=== PATIENT | female | born 1950 | race Caucasian/White ===

== ENCOUNTER 2018-02-23 08:04 | Outpatient (CLI) | payer MEDICARE ==
[~2018-02-23] VITALS: Ht 154.9 cm; Wt 52.3 kg
--- NOTE | ~2018-02-23 | HEMODYNAMI ---
PATIENT:COREY CAMACHO MEDICAL RECORD: [id number] : 46 LOCATION:DRTANG ADMISSION DATE: 02/23/18 Generatedon:02/23/20189:44 Patient name: COREY CAMACHO Patient #: [id number] SSN: : 1950 Date of study: 02/23/2018 Page: Of Hemodynamic Procedure Report Patient Data Patient Demographics Procedure consent was obtained First Name: COREY Gender: Female Last Name: DOUG : 1950 [facility] Initial: JACKIE Age: 68 year(s) Patient #: [id number] Race: Unknown Additional ID: [id number] Contact details [address]: [address] [place] [address] State: [place] City: [place] Zip code: [address] Admission Admission Data Admission Date: 02/23/2018 Admission Time: 8:04 Procedure Procedure Types Cath Procedure Diagnostic Procedure LHC LHC w/Coronaries w/Grafts FFR/IVUS Intra-Coronary IVUS Initial Sedation Charges Moderate Sedation up to 15 minutes PCI Procedure AMI/SVG/TIRE GROOVER PTCA or Stent SVG-BMS/SAVANA Initial Peripheral Cath Diagnostic Procedure Cath Peripheral Wcslr-Gtnseyx-Psm-Off Procedure Description Procedure Date Procedure Date: 02/23/2018 Procedure Start Time: 9:22 Procedure End Time: 9:42 Procedure Staff Name Function Edy Jackson MD Performing Physician Darrick Paige RT Monitor Reggie Gómez RN Nurse Claudette Amaya RT Scrub Procedure Data Cath Procedure Fluoroscopy Diagnostic fluoroscopy Total fluoroscopy Time: 5.5 time: 5.5 min min Diagnostic fluoroscopy Total fluoroscopy dose: 560 dose: 560 mGy mGy Contrast Material Contrast Material Type Amount (ml) Isovue 300 169 Entry Location Entry Primary Successful Side Size Upsize Upsize Entry Closure Succes sful Closure Location (Fr) 1 (Fr) 2 (Fr) Remarks Device Remarks Femoral Right 5 Fr 6 Fr Exoseal artery Short Estimated blood loss: 10 ml Diagnostic catheters Device Type Used For End Catheter Placement MULTIPACK Pigtail 5 Fr Procedure catheter MULTIPACK JL 4.0 5Fr Procedure catheter MULTIPACK 3DRC 5Fr Procedure catheter DIAGNOSTIC AR 2 MOD 5 Fr Procedure catheter ([id number]) DIAGNOSTIC AL 2 5Fr Procedure catheter ([id number]) Procedure Complications No complications Procedure Medications Medication Administration Route Dosage 0.9% NaCl I.V. 100 ml/hr Oxygen etCO2 Nasal cannula 2 l/min Heparin Flush Bag added to field 2 bags (1000units/500ml NS) Lidocaine 2% added to field 20 Versed I.V. 1 mg Fentanyl I.V. 50 mcg Heparin Bolus I.V. 4000 units Hemodynamics Rest Heart Rate: 58 (bpm) Snapshots Pre Cath Intra NCS Post Cath Vital Signs Time Heart Resp SPO2 etCO2 NIBP (mmHg) Rhythm Pain Sedation Rate (ipm) (%) (mmHg) Status Level (bpm) 9:05:12 56 16 98 0 153/81(119) NSR 0 (11) 10(A) , No pain 9:09:53 56 14 98 32.3 157/82(116) NSR 0 (11) 10(A) , No pain 9:14:34 58 17 98 39.8 117/69(94) NSR 0 (11) 10(A) , No pain 9:19:08 59 17 98 43.6 119/67(88) NSR 0 (11) 10(A) , No pain 9:23:44 58 18 97 37.6 118/65(83) NSR 0 (11) 9(A) , No pain 9:28:23 58 18 98 25.5 114/54(87) NSR 0 (11) 9(A) , No pain 9:32:59 57 18 98 33.8 114/57(89) NSR 0 (11) 9(A) , No pain 9:37:36 58 18 98 24.8 112/56(87) NSR 0 (11) 10(A) , No pain 9:42:13 58 18 98 1.5 105/58(86) NSR 0 (11) 10(A) , No pain Medications Time Medication Route Dose Verified Delivered Reason Notes Effectiveness by by 9:09:57 0.9% NaCl I.V. 100 Reggie Reggie Per physician ml/hr Dalia Gómez RN RN 9:10:15 Oxygen etCO2 2 Reggie Reggie Per physician Nasal l/min Dalia Gómez cannula RN RN 9:10:27 Heparin Flush added 2 Reggie Reggie used for Bag to bags Dalia Gómez procedure (1000units/500ml field RN RN NS) 9:10:47 Lidocaine 2% added 20ml Reggie Reggie for local to vial Dalia Gómez anesthetic field RN RN 9:22:33 Versed I.V. 1 mg Reggie Reggie for sedation Dalia Gómez RN RN 9:22:42 Fentanyl I.V. 50 Reggie Reggie for sedation mcg Dalia Gómez RN RN 9:36:10 Heparin Bolus I.V. 4000 Reggie Reggie for units Dalia Gómez anticoagulation RN health safety instructor Log Time Note 8:49:59 Time tracking: Regular hours (M-F 7:00 - 5:00) 8:50:04 Plan of Care:Hemodynamics will remain stable., Cardiac rhythm will remain stable., Comfort level will be maintained., Respiratory function will remain adequate., Patient/ family verbilizes understanding of procedure., Procedure tolerated without complication., Recovers from procedure without complications.. 8:51:16 Claudette Counts RT(R) sent for patient. Start room use. 9:00:02 Patient received from Pre/Post Procedure Room to CCL 1 Alert and oriented. Tansferred to table in Supine position. 9:00:03 Warm blankets applied, and brie hugger turned on for patient comfort. 9:00:04 Correct patient and procedure confirmed by team. 9:00:06 Signed procedure consent form obtained from patient. 9:00:07 ECG and BP/O2 sat monitors applied to patient. 9:00:51 H&P Date Dictated: 02/09/2018 Within 30 days and on chart., H&P Addendum completed by physician on day of procedure. (MUST COMPLETE FOR ALL OUTPATIENTS). 9:04:16 Vital chart was started 9:04:19 Rhythm: sinus rhythm 9:09:57 0.9% NaCl 100 ml/hr I.V. was administered by Reggie Gómez RN; Per physician; 9:10:15 Oxygen 2 l/min etCO2 Nasal cannula was administered by Reggie Gómez RN; Per physician; 9:10:27 Heparin Flush Bag (1000units/500ml NS) 2 bags added to field was administered by Reggie Lorigan RN; used for procedure; 9:10:47 Lidocaine 2% 20ml vial added to field was administered by Reggie Gómez RN; for local anesthetic; 9::13 Pre-procedure instructions explained to patient. 9:21:13 Pre-op teaching completed and patient verbalized understanding. 9:21:17 Family in patients room. 9:21:19 Patient NPO since Midnight. 9:21:20 Is the patient allergic to Iodine/contrast media? No. 9:21:21 Is patient on blood thinner?Yes 9:21:24 ACC The patient was administered the following blood thiners within the last 24 hours: ACCPlavix 9:21:26 Patient diabetic? No. 9:21:30 Previous problem with sedation/anesthesia? No ? 9:21:32 Snore? Yes 9:21:33 Sleep apnea? No 9:21:34 Deviated septum? No 9:21:35 Opens mouth fully? Yes 9:21:36 Sticks out tongue? Yes 9:21:38 Airway obstruction? No ? 9:21:40 Dentures? No ? 9:21:43 Pre procedure: right dorsailis pedis pulse 2+ Normal; easily identifiable; not easily obliterated 9:21:50 Pre procedure: left dorsailis pedis pulse 2+ Normal; easily identifiable; not easily obliterated 9:21:53 Patient pain scale 0/10 ?. 9:22:00 IV patent on arrival in left forearm with 0.9% NaCl at O. 9:22:02 Lab results completed and on chart. 9:22:07 Bilateral groins area was prepped with chlora-prep and draped in sterile fashion 9:22:08 Alarms reviewed by R. N. 9:22:08 Sharps counted by scrub and verified by R.N. 9:22:09 --------ALL STOP TIME OUT------ 9:22:10 Final Timeout: patient, procedure, and site verified with staff and physician. All members of the team are in agreement. 9:22:13 Bilateral groins site verified by team. 9:22:15 Physical assessment completed. ASA score P 2 - A patient with mild systemic disease as per Edy Jackson MD. 9:22:18 Sedation plan: IV Moderate Sedation Medication:Versed, Fentanyl 9:22:33 Versed 1 mg I.V. was administered by Reggie Gómez RN; for sedation; 9:22:35 Use device set Femoral Dx 9:22:36 Tegaderm 4 x 4 (1626W) opened to sterile field. 9:22:37 PERCUTANEOUS ENTRY 19GA needle opened to sterile field. 9:22:38 ACIST Syringe (77258) opened to sterile field. 9:22:38 Bag Decanter (2002S) opened to sterile field. 9:22:39 Medline Cath Pack ([id number]) opened to sterile field. 9:22:41 ACIST Hand Control (93420) opened to sterile field. 9:22:41 ACIST Manifold (61397) opened to sterile field. 9:22:42 Fentanyl 50 mcg I.V. was administered by Reggie Gómez RN; for sedation; 9::42 DIAGNOSTIC WIRE .035 260cm J wire (125237) opened to sterile field. 9:22:44 DIAGNOSTIC Multipack 5Fr catheter set (ZR0714) opened to sterile field. 9:22:45 SHEATH Prelude 5Fr 0.035 (PMK-2D-09-035) opened to sterile field. 9::52 Procedure started. 9::52 Full Disclosure recording started 9:22:56 Local anesthetic to right femoral artery with Lidocaine 2% by Edy Jackson MD.INITIAL ACCESS ONLY 9:23:59 A 5 Fr sheath was inserted into the Right Femoral artery 9:24:16 A MULTIPACK Pigtail 5 Fr catheter was advanced over the wire and used for Procedure. 9:24:27 Baseline sample Acquired. 9:24:33 LV angiography performed. 9:24:35 LV gram done using BLANKENSHIP 9:24:39 EF : 40 % 9::44 Injector settings: Ml/sec: 10, Volume: 20, 9:24:48 Abdominal Aortagram was performed. 9:24:50 Left leg runoff performed. 9:24:51 Right leg runoff performed. 9:26:29 Catheter exchanged over wire. 9::35 A MULTIPACK JL 4.0 5Fr catheter was advanced over the wire and used for Procedure. 9:27:41 LCA angiography performed. 9:27:42 Catheter exchanged over wire. 9:27:47 A MULTIPACK 3DRC 5Fr catheter was advanced over the wire and used for Procedure. 9:28:16 RCA angiography performed. 9:28:23 Catheter exchanged over wire. 9:29:10 A DIAGNOSTIC AR 2 MOD 5 Fr catheter ([id number]) was advanced over the wire and used for Procedure. 9:30:23 SVG to Ramus angiography performed. 9:30:26 SVG to RCA angiography performed. 9:31:08 SHEATH Prelude 6Fr 0.035 (UUK-5C-15-035) opened to sterile field. 9:31:09 INFLATOR Merit BasixCompak (MH7338) opened to sterile field. 9:32:26 Catheter exchanged over wire. 9:32:29 A DIAGNOSTIC AL 2 5Fr catheter (023435K) was advanced over the wire and used for Procedure. 9:33:43 SVG to LAD angiography performed. 9:34:04 [place] Cheesh-[place] IVUS Catheter (53507T) opened to sterile field. 9:34:12 CHOICE PT Extra Support 182cm wire ([id number]) opened to sterile field. 9:35:40 Catheter removed. 9:35:48 Sheath upsized to a 6 Fr Short. 9:35:56 GUIDE 6FR AL 2.0 catheter (XO3ME26) opened to sterile field. 9:36:06 6 Fr AL 2 guide catheter was inserted over the wire 9:36:10 Heparin Bolus 4000 units I.V. was administered by Reggie Gómez RN; for anticoagulation; 9:36:12 CHOICE PT wire advanced. 9:36:12 Wire advanced across lesion. 9:36:15 IVUS catheter advanced over wire. 9:38:19 IVUS pass to LAD lesion performed. 9:38:24 IVUS catheter removed over wire. 9:39:14 Place stent Inflation Number: 1 A JEFE RX 4.0 x 15 stent ([id number]) was prepped and advanced across the Aorta Left -> Mid LAD. The stent was deployed at 23 TRUE for 0:10 (min:sec). 9:39:24 Stent catheter was removed intact over wire. 9:39:24 Wire removed. 9:39:25 Guide catheter removed. 9:39:32 EXOSEAL 6Fr (EX600) opened to sterile field. 9:39:42 Sheath removed intact; hemostasis achieved with Exoseal to the Right Femoral artery. 9:39:43 Procedure ended.(Physican Out) 9:39:58 Fluoroscopy time 05.50 minutes. 9:40:56 Contrast amount:Isovue 300 169ml. 9:41:00 Flurop Dose total: 560 9:41:00 Fluoroscopy dose: 560 mGy 9:41:04 Sharps counted by scrub and verified by R.N. 9:41:05 Insertion/operative site no bleeding no hematoma. 9:41:08 Post-op/insertion site Right Femoral artery dressed using a 4 x 4 and Tegaderm. 9:41:16 Post right femoral artery:stable, soft, clean and dry 9:41:17 Post Procedure Pulses reassessed and unchanged 9:41:19 Post-procedure physical assessment completed. ASA score P 2 - A patient with mild systemic disease as per Edy Jackson MD. 9:41:22 Post procedure rhythm: unchanged. 9:41:25 Estimated blood loss: 10 ml 9:41:26 Post procedure instruction explained to patient.Patient verbalizes understanding. 9:41:27 Patient needs reinforcement of post procedure teaching. 9:41:47 Procedure type changed to Cath procedure, Diagnostic procedure, LHC, LHC w/Coronaries w/Grafts, FFR/IVUS, Intra-Coronary IVUS Initial, Sedation Charges, Moderate Sedation up to 15 minutes, PCI procedure, AMI/SVG/TIRE GROOVER PTCA or Stent, SVG-BMS/SAVANA Initial, Peripheral Cath Diagnostic Procedure, Cath Peripheral, Swret-Pbmnlyw-Nol-Off 9:42:13 Procedure and supply charges have been captured, reviewed, submitted and are correct. 9:42:16 Procedure Complication : No complications 9:42:18 Vital chart was stopped 9:42:19 See physician's report for complete and final results. 9:42:20 Report given to Pre/Post Procedure Room. 9:42:23 Patient transfered to Pre/Post Procedure Room with Stretcher. 9:42:27 Procedure ended. 9:42:27 Full Disclosure recording stopped 9:42:29 End room use (Document Last) Intervention Summary Intervention Notes Time ActionType Lesion and Equipment Used Action# Pressure Duration Attributes 9:39:14 Place stent Aorta Left JEFE RX 4.0 x 1 23 00:10 -> Mid LAD 15 stent ([id number]) Device Usage Item Name Manufacture Quantity Catalog Number Hospital Part Current Minimal Lot# / Charge Number Stock Stock Serial# Code Tegaderm 4 x 4 3M 1 1626W [id number] 400433 [id number] 5 (1626W) PERCUTANEOUS Cook Medical 1 [id number] 880998 692978 5 ENTRY 19GA needle ACIST Syringe Acist 1 38559 941943 695348 705921 20 (53116) Medical Systems Inc Bag Decanter Microtek 1 2001S 676127 68549 568979 5 (2001S) Medical Inc. Medline Cath Cardinal 1 [id number] 872290 29558 363005 5 Pack Health ([id number]) ACIST Hand Acist 1 32277 045370 017450 047511 5 Control (58746) Medical Systems Inc ACIST Manifold Acist 1 94806 803600 175936 686779 5 (91576) Medical Systems Inc DIAGNOSTIC WIRE St Beau 1 154926 548829 587219 314437 30 .035 260cm J wire (450948) DIAGNOSTIC Cardinal 1 IT4414 239852 54739 517853 30 Multipack 5Fr Health catheter set (HK5784) SHEATH Prelude Merit 1 OBJ-7Y-28-035 756985 166611 221108 5 5Fr 0.035 Medical (ISH-1H-33-035) MULTIPACK Cardinal 1 983189 5 Pigtail 5 Fr Health catheter MULTIPACK JL Cardinal 1 153159 5 4.0 5Fr Health catheter MULTIPACK 3DRC Cardinal 1 857252 5 5Fr catheter Health DIAGNOSTIC AR 2 Cardinal 1 [id number] 834377 188538 237311 20 MOD 5 Fr Health catheter ([id number]) SHEATH Prelude Merit 1 YXL-7X-06-35 464801 9666981 119717 5 6Fr 0.035 Medical (ZVF-0Q-36-035) INFLATOR Merit Merit 1 PJ1543 434547 100986 084053 15 BasixComPositive Networks Medical (IX4814) DIAGNOSTIC AL 2 Cardinal 1 [id number] 826328 339063 017629 15 5Fr catheter Health (249405O) [place] 1 68299N 099497 755236 836805 8 Cheesh-[place] Eag[place]e IVUS Catheter (33523T) CHOICE PT Extra [place] 1 [id number] 192042 495451 670138 5 Support 182cm Scientific wire ([id number]) GUIDE 6FR AL Medtronic 1 NZ2KT86 097591 62055 375376 1 2.0 catheter (MZ2JD63) JEFE RX 4.0 x Medtronic 1 [id number] 548636 1985837 339585 5 [id number] 15 stent ([id number]) EXOSEAL 6Fr Cardinal 1 EX600 109151 762204 148901 10 (EX600) Health Signature Audit [place] Stage Time Signature Unsigned Intra-Procedure 02/23/2018 Darrick Paige 9:44:48 AM RT(R) Signatures Monitor : Darrick Paige RT Signature : Date : Time : [id number] [place] [address]
--- NOTE | ~2018-02-23 | OP ---
PATIENT NAME: COREY CAMACHO MEDICAL RECORD: [id number] :46 LOCATION:D.CAT ADMISSION DATE: SURGEON: ASHLEIGH MEREDITH MD DATE OF OPERATION: 02/23/2018 PROCEDURE: 1. Aortofemoral runoff. 2. Abdominal aortography. INDICATION: Claudication and peripheral vascular disease. PROCEDURE IN DETAIL: After informed consent was obtained and after a detailed description of risks, benefits as well as alternative therapies, the patient elected to proceed with angiogram and angioplasty. The right femoral area had a preexisting sheath from coronary intervention. All catheters exchanged through this sheath. FINDINGS: The abdominal aortography was performed. The catheter was pulled down for aortofemoral runoff. Abdominal aortography reveals no significant abdominal aortic disease. There is greater than 80% renal artery stenosis on the left. The right renal artery is devoid of disease, no dissection or aneurysm formation. RIGHT LEG: A. Iliac: The common internal and external iliacs have moderate irregularities, but no flow-limiting stenosis. B. Femoral system: The common superficial and deep femoral have moderate irregularities, no stenosis greater than 20%, no flow-limiting stenosis. C. Popliteal and infrapopliteal vessels have preserved 3-vessel runoff to the foot, although mildly diffusely diseased. LEFT LEG: A. Iliac: The common internal and external iliacs have moderate irregularities, but no flow-limiting stenosis. B. Femoral system: The common superficial and deep femoral have moderate irregularities, no stenosis greater than 20%, no flow-limiting stenosis. C. Popliteal and infrapopliteal vessels have preserved 3-vessel runoff to the foot, although mildly diffusely diseased. OVERALL IMPRESSION: Left renal artery stenosis is present. No significant peripheral vascular disease else salazar. Continue medical management of the peripheral vascular disease and peripheral risk factors. TRANSINT:[id number] Voice Confirmation ID: [id number] DOCUMENT ID: [id number] ASHLEIGH MEREDITH MD at 1218 CC: [id number] DICTATION DATE: 02/23/18 0946 COAL OR ORE CONTROLLER: 02/23/18 1406 DEP CLI 02/23/18 [place] [address]
--- NOTE | ~2018-02-23 | OP ---
PATIENT NAME: COREY CAMACHO MEDICAL RECORD: [id number] :46 LOCATION:D.CAT ADMISSION DATE: SURGEON: ASHLEIGH MEREDITH MD DATE OF OPERATION: 02/23/2018 PROCEDURES: 1. PTCA stent vein graft to LAD. 2. Left heart catheterization. 3. Selective coronary angiography. 4. Vein graft angiography. 5. NUNN angiography. 6. Intravascular ultrasound. INDICATION: Unstable angina and coronary artery disease. PROCEDURE IN DETAIL: After informed consent was obtained and after a detailed description of risks, benefits as well as alternative therapies, the patient elected to proceed with angiogram and angioplasty. The right femoral area was prepped and draped in normal sterile fashion. The right femoral artery was cannulated via modified Seldinger technique with placement of 6-Cymraes sheath. All catheters exchanged through this sheath. FINDINGS: The left ventriculogram was performed in standard 30-degree BLANKENSHIP view, reveals global hypokinesis throughout all segments. Overall ejection fraction estimated 40%. SELECTIVE CORONARY ANGIOGRAPHY: 1. Left main is 90% stenosed. 2. Left anterior descending is closed. 3. Left circumflex is 95% stenosed. 4. NUNN is atretic nonfunctional. 5. Vein graft to the LAD is patent. There are previously placed stents with greater than 80% in-stent restenosis confirmed by intravascular ultrasound. 6. Vein graft to the ramus intermedius is patent with 80% stenosis in the mid distal shaft. 7. Vein graft to the right coronary artery is patent as the em[place]ak right coronary artery is totally occluded. This vein graft has a severe 90% stenosis in the mid shaft. PTCA STENT OF THE LAD VEIN GRAFT: The stent used was a 4.0 x 15 mm Bigelow. The result was 0% residual stenosis. OVERALL IMPRESSION: Successful percutaneous transluminal coronary angioplasty stent of the vein graft to the left anterior descending going from 80% initial stenosis to 0% residual. PLAN: PTCA stent of the vein graft to circumflex and RCA in a staged fashion in the near future. TRANSINT:[id number] Voice Confirmation ID: [id number] DOCUMENT ID: [id number] OPERATIVE REPORT [id number] LEEANN CAMACHOASHLEIGH MANLEY MD at 1218 CC: [id number] DICTATION DATE: 02/23/18 0946 DRIVER LICENSE REVIEWING OFFICER: 02/23/18 1406 DEP CLI 02/23/18 [facility] [address] [place] [address]
[2018-02-23] MEDS ORDERED: TRAZODONE HCL50 MG PO (08:23)
[2018-02-23] MEDS ORDERED: PLAVIX75 MG PO (08:24)
[2018-02-23] MEDS ORDERED: LIPITOR80 MG PO (08:24)
[2018-02-23] MEDS ORDERED: PRINIVIL20 MG PO (08:24)
[2018-02-23] MEDS ORDERED: BAYER CHEWABLE81 MG PO (08:24)
[2018-02-23] MEDS ORDERED: COREG12.5 MG PO (08:25)
[2018-02-23 08:49] VITALS: BP 128/66; Ht 154.9 cm; Wt 52.3 kg
[2018-02-23 08:51] LABS: BASOPHILS 0.5 % (0-2); EOSINOPHILS 6.7 % (0-7); HEMATOCRIT 34.7 % (36.0-48.0); HEMOGLOBIN 11.4 g/dL (12-16); IMMATURE GRANULOCYTES 0.3 % (0-5); LYMPHOCYTES 28.2 % (15-50); MCH 31.1 pg (26.0-34.0); MCHC 32.9 g/dL (31.0-37.0); MCV 94.6 fL (80.0-100.0); MEAN PLATELET VOLUME 8.6 fL (7.4-10.4); MONOCYTES 10.2 % (2-11); NEUTROPHILS 54.1 % (40-80); PLATELET COUNT 158 10x3/uL (130-400); RBC 3.67 10x6/uL (4.00-5.40); RDW 15.7 % (11.5-14.5); WBC 7.9 10x3/uL (4.8-10.8)
[2018-02-23 09:05] LABS: ANION GAP 12.1 mmol/L (8-16); CALCIUM 9.4 mg/dL (8.5-10.1); CARBON DIOXIDE 27.9 mmol/L (21.0-32.0); CREATININE - SERUM 2.1 mg/dL (0.6-1.3)
== END 2018-02-23 14:00 ==
LOC: D.CATH 08:04
PROVIDERS: Internal Medicine Interventional Cardiology
DX: I25.110 Atherosclerotic heart disease of native coronary artery with unstable angina pectoris (principal); I70.213 Atherosclerosis of native arteries of extremities with intermittent claudication, bilateral legs; I70.1 Atherosclerosis of renal artery; Z01.812 Encounter for preprocedural laboratory examination
CPT/HCPCS: 92978; 93459; C9604

== ENCOUNTER 2018-03-02 07:30 | Outpatient (CLI) | payer MEDICARE ==
[~2018-03-02] VITALS: Ht 154.9 cm; Wt 49.1 kg
--- NOTE | ~2018-03-02 | HP ---
PATIENT: COREY CAMACHO MEDICAL RECORD: [id number] ACCOUNT: [id number] LOCATION:D. D.2127 : 46 ADMISSION DATE: 03/02/18 HISTORY AND PHYSICAL EXAMINATION DIAGNOSES: 1. Angina. 2. Coronary artery disease. 3. Recent PTCA stent vein graft to LAD with concomitant disease, vein graft to circumflex and vein graft to RCA. 4. Hypertension. 5. Hyperlipidemia. HISTORY: Mrs. Camacho presents with unstable angina, found to have 3-vessel coronary artery disease of all the bypass grafts, underwent successful PTCA stent of the vein graft to the LAD, is now brought back for a vein graft to the circumflex and vein graft to the RCA in a staged fashion. PHYSICAL EXAMINATION: GENERAL APPEARANCE: Well-nourished, well-developed, appears stated age. Level of distress, comfortable. PSYCHIATRIC: Mental status, alert, normal affect. Orientation, oriented to time, place and person. EYES: Lids and conjunctiva, noninjected. No discharge, no pallor. ENT: Lips, teeth, gums, normal dentition. Oropharynx, no cyanosis, no pallor. NECK: Carotid arteries, bilateral normal upstroke, no bruits, no thrills. JUGULAR VEINS: No jugular venous pressure or distention. CERVICAL LYMPH NODES: Nontender, nonenlarged. THYROID: Not enlarged. Nontender. No nodules. LUNGS: Respiratory effort, unlabored. CHEST: Normal curvature. No thoracic deformity. No chest wall tenderness. Percussion, resonant. Auscultation, clear. No wheezes, no rales, no rhonchi. CARDIOVASCULAR: Precordial exam, nondisplaced. No heaves or pericardial thrills. Rate and rhythm, regular. Heart sounds, normal S1, normal S2. No S3, no gallop, no rub. Systolic murmur, not heard. Diastolic murmur, not heard. EXTREMITIES: No cyanosis, no edema. Peripheral pulses, full and equal in all extremities, except as noted. No bruits appreciated. ABDOMEN: Soft, nondistended. Normal aorta. No bruit. Nontender. No masses. Liver, nontender, no hepatomegaly. Spleen, nontender, no splenomegaly. MUSCULOSKELETAL: No joint tenderness. No joint swelling. No erythema. NEUROLOGICAL: Normal gait, normal strength, normal tone. SKIN: Warm and dry. REVIEW OF SYSTEMS: The patient reports easy bruising but reports no swollen glands. The patient reports no fever, no night sweats, no significant weight gain, no significant weight loss. No significant exercise tolerance. The patient reports no dry eyes, no irritation, no vision change. Patient reports no difficulty hearing and no ear pain. Patient reports no frequent nose bleeds or nose and sinus problems. Patient reports on arm pain on exertion. No shortness of breath while lying down. No history of heart murmur. Patient reports no cough, no wheezing or coughing up blood. Patient reports no abdominal pain, no vomiting. Normal appetite. No diarrhea and not vomiting blood. No nausea and no constipation. Patient reports no incontinence. No difficulty urinating. No hematuria. No increased frequency. Patient reports no muscle aches. No weakness, no arthralgias, no back pain. No swelling of the HISTORY AND PHYSICAL [id number] COREY CAMACHO. Patient reports no abnormal mole, no jaundice, no rashes. Reports no loss of consciousness. No weakness and no numbness. No seizures, dizziness, or headaches. The patient reports no depression, no sleep disturbance, feeling safe in a relationship and no alcohol abuse. Patient reports on fatigue. Reports no runny nose or sinus pressure. No itching, no hives, and no frequent sneezing. 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 We will proceed with transcatheter revascularization of the vein graft disease. TRANSINT:[id number] Voice Confirmation ID: [id number] DOCUMENT ID: [id number] ASHLEIGH MEREDITH MD at 1711 CC: [id number] DICTATION DATE: 03/02/18932 OPTICAL ENGINEERING TECHNICIAN: 03/02/1859 [facility] [address] [place] [address]
--- NOTE | ~2018-03-02 | HEMODYNAMI ---
PATIENT:COREY CAMACHO MEDICAL RECORD: [id number] : 46 LOCATION:DTRANG ADMISSION DATE: 03/02/18 Generatedon:03/02/201810:06 Patient name: COREY CAMACHO Patient #: [id number] SSN: : 1950 Date of study: 03/02/2018 Page: Of Hemodynamic Procedure Report Patient Data Patient Demographics Procedure consent was obtained First Name: COREY Gender: Female Last Name: DOUG : 1950 [facility] Initial: JACKIE Age: 68 year(s) Patient #: [id number] Race: Unknown Additional ID: [id number] Contact details Address: [address] [place] [address] State: [place] City: [place] Zip code: [address] Past Medical History Allergies: No known allergies Admission Admission Data Admission Date: 03/02/2018 Admission Time: 7:30 Admit Source: Other Height (in.): 61 BSA: 1.49 (m2) Height (cm.): 154.94 BMI: 21.77 (kg/m2) Weight (lbs.): 115.24 Weight (kg.): 52.27 Lab Results Lab Result Date: 03/02/2018 Lab Result Time: 7:55 Biochemistry Name Units Result Min Max BUN mg/dl 25 --(----)-* 7 18 Creatinine mg/dl 2.4 --(----)-* 0.6 1.3 CBC Name Units Result Min Max Hematocrit % 32.8 *-(----)-- 42 54 Hemoglobin g/dl 10.8 *-(----)-- 13.5 17.5 Procedure Procedure Types Cath Procedure PCI Procedure AMI/SVG/TIMBER SPRINKLER PTCA or Stent SVG-BMS/SAVANA Initial Procedure Description Procedure Date Procedure Date: 03/02/2018 Procedure Start Time: 9:35 Procedure End Time: 10:05 Procedure Staff Name Function Edy Jackson MD Performing Physician Eliezer Charlton RN Nurse Darrick Paige RT Scrub Eduard Paniagua RT Monitor Procedure Data Cath Procedure Fluoroscopy Diagnostic fluoroscopy Total fluoroscopy Time: 4.9 time: 4.9 min min Diagnostic fluoroscopy Total fluoroscopy dose: 44 dose: 44 mGy mGy Contrast Material Contrast Material Type Amount (ml) Isovue 300 97 Entry Location Entry Primary Successful Side Size Upsize Upsize Entry Closure Succes sful Closure Location (Fr) 1 (Fr) 2 (Fr) Remarks Device Remarks Femoral Left 6 Fr Exoseal artery Short Estimated blood loss: 10 ml Procedure Complications No complications Procedure Medications Medication Administration Route Dosage Oxygen etCO2 Nasal cannula 2 l/min Heparin Flush Bag added to field 2 bags (1000units/500ml NS) 0.9% NaCl I.V. 100 ml/hr Fentanyl I.V. 50 mcg Versed I.V. 1 mg Fentanyl I.V. 50 mcg Versed I.V. 1 mg Heparin Bolus I.V. 4000 units Hemodynamics Rest BSA: 1.49 (m2) HGB: 10.8 (g/dl) O2 Consumption: Estimated: 126.37 (ml/min) O2 Co nsumption indexed: Estimated:84.81 (ml/min/m) Heart Rate: 51 (bpm) Pressure Samples Time Site Value (mmHg) Purpose Heart Use Rate(bpm) 9:49 AO 95/61(76) Snapshot 62 Snapshots Pre Cath Intra NCS Post Cath Vital Signs Time Heart Resp SPO2 etCO2 NIBP (mmHg) Rhythm Pain Sedation Rate (ipm) (%) (mmHg) Status Level (bpm) 9:21:46 59 17 95 35 129/80(102) NSR 0 (11) 10(A) , No pain 9:25:42 57 16 100 35 123/73(95) NSR 0 (11) 10(A) , No pain 9:29:35 58 17 99 32 116/64(92) NSR 0 (11) 10(A) , No pain 9:33:29 59 16 97 32 101/64(82) NSR 0 (11) 9(A) , No pain 9:37:18 60 17 96 42 96/62(83) NSR 0 (11) 9(A) , No pain 9:41:34 62 16 95 47 111/58(86) NSR 0 (11) 9(A) , No pain 9:45:54 62 16 95 53.6 107/56(85) NSR 0 (11) 9(A) , No pain 9:49:48 62 16 95 51 97/53(77) NSR 0 (11) 9(A) , No pain 9:53:39 62 17 96 48 93/57(74) NSR 0 (11) 9(A) , No pain 9:57:28 62 19 96 47.6 90/56(72) NSR 0 (11) 9(A) , No pain 10:01:20 62 7 98 0 96/55(75) NSR 0 (11) 9(A) , No pain Medications Time Medication Route Dose Verified Delivered Reason Notes Effectiveness by by 9:19:03 Oxygen etCO2 2 Edy Eliezer Per physician Nasal l/min Manuel Charlton RN cannula 9:19:13 Heparin Flush added 2 Edy Martins used for Bag to bags Manuel Charlton RN procedure (1000units/500ml field NS) 9:19:22 0.9% NaCl I.V. 100 Edy Martins Per physician ml/hr Manuel Charlton RN 9:29:43 Fentanyl I.V. 50 Edy Vieray for sedation mcg Manuel Charlton RN 9:29:51 Versed I.V. 1 mg Edy Vieray for sedation Manuel Charlton RN 9:36:30 Fentanyl I.V. 50 Edy Vieray for sedation mcg Manuel Charlton RN 9:36:33 Versed I.V. 1 mg Edy Martins for sedation Manuel Charlton RN 9:37:46 Heparin Bolus I.V. 4000 Edyjoselin Vieray for units Manuel Charlton RN anticoagulation Procedure Log Time Note 8:47:59 Informed consent obtained and on chart 8:50:32 Admit Source: Other 8:51:01 Diagnostic Cath status Elective 8:51:02 Time tracking: Regular hours (M-F 7:00 - 5:00) 8:51:07 Plan of Care:Hemodynamics will remain stable., Cardiac rhythm will remain stable., Comfort level will be maintained., Respiratory function will remain adequate., Patient/ family verbilizes understanding of procedure., Procedure tolerated without complication., Recovers from procedure without complications.. 9:08:20 Lab Result : BUN 25 mg/dl 9:08:20 Lab Result : Creatinine 2.4 mg/dl 9:08:20 Lab Result : Hemoglobin 10.8 g/dl 9:08:20 Lab Result : Hematocrit 32.8 % 9:08:24 Lab results completed and on chart. 9:09:51 Patient received from Pre/Post Procedure Room to CCL 3 Alert and oriented. Tansferred to table in Supine position. 9:09:52 Warm blankets applied, and brie hugger turned on for patient comfort. 9::53 Correct patient and procedure confirmed by team. 9::53 ECG and BP/O2 sat monitors applied to patient. 9::58 H&P Date Dictated: 03/02/2018 New H&P dictated by physician.. 9::59 Pre-procedure instructions explained to patient. 9::59 Pre-op teaching completed and patient verbalized understanding. 9:10:00 Family in waiting room. 9:10:01 Patient NPO since Midnight. 9:10:07 Patient allergic to No known allergies 9:10:09 Is the patient allergic to Iodine/contrast media? No. 9:10:10 Is patient on blood thinner?Yes 9:10:12 ACC The patient was administered the following blood thiners within the last 24 hours: ACCPlavix 9:19:03 Oxygen 2 l/min etCO2 Nasal cannula was administered by Eliezer Charlton RN; Per physician; 9:19:13 Heparin Flush Bag (1000units/500ml NS) 2 bags added to field was administered by Eliezer Charlton RN; used for procedure; 9:19:22 0.9% NaCl 100 ml/hr I.V. was administered by Eliezer Charlton RN; Per physician; 9:20:57 Vital chart was started 9:21:46 Baseline sample Acquired. 9:21:50 Rhythm: sinus bradycardia 9:21:51 Full Disclosure recording started 9:21:54 Patient diabetic? No. 9:21:58 Snore? Yes 9:22:00 Previous problem with sedation/anesthesia? No ? 9:22:01 Sleep apnea? No 9:22:02 Deviated septum? No 9:22:03 Opens mouth fully? Yes 9:22:05 Sticks out tongue? Yes 9:22:07 Airway obstruction? Yes ? 9:22:11 Dentures? No ? 9:23:21 Pre procedure: left dorsailis pedis pulse 1+ Palpable, but thready & weak; easily obliterated 9:23:31 Patient pain scale 0/10 ?. 9:23:39 IV patent on arrival in left forearm with 0.9% NaCl at [facility]. 9:23:52 Left groin area was prepped with chlora-prep and draped in sterile fashion 9::53 Alarms reviewed by R. N. 9::54 Sharps counted by scrub and verified by R.N. 9:28:11 --------ALL STOP TIME OUT------ 9:28:12 Final Timeout: patient, procedure, and site verified with staff and physician. All members of the team are in agreement. 9::14 Left groin site verified by team. 9:28:19 Physical assessment completed. ASA score P 2 - A patient with mild systemic disease as per Edy Jackson MD. 9::23 Sedation plan: IV Moderate Sedation Medication:Versed, Fentanyl 9:29:43 Fentanyl 50 mcg I.V. was administered by Eliezer Charlton RN; for sedation; 9::51 Versed 1 mg I.V. was administered by Eliezer Charlton RN; for sedation; 9:31:07 Use device set [facility] PCI 9:31:17 ACIST Manifold (85476) opened to sterile field. 9:31:18 ACIST Hand Control (81323) opened to sterile field. 9:31:20 Tegaderm 4 x 4 (1626W) opened to sterile field. 9:31:21 ACIST Syringe (69932) opened to sterile field. 9:31:21 Medline Cath Pack ([id number]) opened to sterile field. 9:31:22 Bag Decanter (2002) opened to sterile field. 9:31:31 INFLATOR Merit BasixCompak (RK9673) opened to sterile field. 9:31:34 CHOICE PT Extra Support 182cm wire (0050024D3) opened to sterile field. 9:31:37 SHEATH Prelude 6Fr 0.035 (EGI-7M-90-035) opened to sterile field. 9:32:51 Patient Weight : 115.24 lbs 9:32:57 Patient Height : 61 inches 9:34:33 GUIDE 6FR AR 2.0 SH catheter ([id number]) opened to sterile field. 9:35:33 Procedure started. 9:35:40 Local anesthetic to left femerol artery with Lidocaine 2% by Edy Jackson MD.INITIAL ACCESS ONLY 9:36:30 Fentanyl 50 mcg I.V. was administered by Eliezer Charlton RN; for sedation; 9:36:33 Versed 1 mg I.V. was administered by Eliezer Charlton RN; for sedation; 9:36:59 A 6 Fr Short sheath was inserted into the Left Femoral artery 9:37:29 6 Fr AR 2 SH guide catheter was inserted over the wire 9:37:41 Study PCI Site: Vein Graft dCirc has 80% stenosis. 9:37:44 ACC Pre-intervention CATRACHO Flow is 3. 9:37:46 Heparin Bolus 4000 units I.V. was administered by Eliezer Charlton RN; for anticoagulation; 9:38:26 Choice PT XS wire advanced. 9:38:45 Wire advanced across lesion. 9:40:28 Place stent Inflation Number: 1 A JEFE RX 2.5 x 15 stent ([id number]) was prepped and advanced across the Aorta Left -> Dist CX. The stent was deployed at 13 TRUE for 0:10 (min:sec). 9:44:11 Stent catheter was removed intact over wire. 9:44:12 Wire removed. 9:44:21 CHOICE PT Extra Support J 300cm guide wire ([id number]) opened to sterile field. 9:44:31 Long Choice PT XS wire advanced. 9:46:23 Wire advanced across lesion. 9:46:39 The JEFE OTW 2.25 x 08 stent ([id number]) was advanced then removed because of failure to cross lesion 9:46:41 Wire removed. 9:46:44 Guide Catheter removed. unable to get back-up support 9:46:55 GUIDE 6FR ART 4.0 SH catheter ([id number]) opened to sterile field. 9:47:17 6 Fr ART 4 SH guide catheter was inserted over the wire 9:48:28 Long Choice PT XS wire advanced. 9:49:58 Wire advanced across lesion. 9:50:41 Place stent Inflation Number: 2 A JEFE OTW 2.25 x 08 stent ([id number]) was prepped and advanced across the Aorta Left -> Dist CX. The stent was deployed at 11 TRUE for 0:10 (min:sec). 9:51:01 Stent catheter was removed intact over wire. 9:51:02 Wire removed. 9:51:02 Guide catheter removed. 9:51:08 EXOSEAL 6Fr (EX600) opened to sterile field. 9:51:44 Eliezer Charlton RN sent for patient. Start room use. 9:52:55 Sheath removed intact; hemostasis achieved with Exoseal to the Left Femoral artery. 9:52:58 Procedure ended.(Physican Out) 9:54:18 Fluoroscopy time 04.90 minutes. 9:54:25 Flurop Dose total: 44 9:54:25 Fluoroscopy dose: 44 mGy 9:54:29 Contrast amount:Isovue 300 97ml. 9:54:31 Sharps counted by scrub and verified by R.N. 9:54:32 Insertion/operative site no bleeding no hematoma. 9:54:37 Post-op/insertion site Left Femoral artery dressed using a 4 x 4 and Tegaderm. 9:54:38 Post Procedure Pulses reassessed and unchanged 9:54:41 Post-procedure physical assessment completed. ASA score P 2 - A patient with mild systemic disease as per Edy Jackson MD. 9:54:43 Post procedure rhythm: unchanged. 9:54:46 Estimated blood loss: 10 ml 9:54:49 Post procedure instruction explained to patient.Patient verbalizes understanding. 9:54:50 Patient needs reinforcement of post procedure teaching. 9:55:09 Procedure and supply charges have been captured, reviewed, submitted and are correct. 9:55:11 Procedure Complication : No complications 10:01:14 FEMSTOP Gold (V75708) opened to sterile field. 10:01:51 Post left femerol artery:bleeding 10:02:11 Femstop placed over the left femerol artery at 120 mmHg. Hemostasis achieved. 10:03:44 DIAGNOSTIC WIRE .035 260cm J wire (309941) opened to sterile field. 10:03:59 Vital chart was stopped 10:04:00 See physician's report for complete and final results. 10:04:55 Bed called for. No bed available. Pt going to [facility] til bed available. 10:05:01 Report given to Pre/Post Procedure Room. 10:05:04 Patient transfered to Pre/Post Procedure Room with Stretcher. 10:05:06 Procedure ended. 10:05:06 Full Disclosure recording stopped 10:05:11 End room use (Document Last) Intervention Summary Intervention Notes Time ActionType Lesion and Equipment Used Action# Pressure Duration Attributes 9:40:28 Place stent Aorta Left JEFE RX 2.5 x 1 13 00:10 -> Dist CX 15 stent ([id number]) 9:46:39 Discard JEFE OTW 2.25 Stent x 08 stent ([id number]) 9:50:41 Place stent Aorta Left JEFE OTW 2.25 2 11 00:10 -> Dist CX x 08 stent ([id number]) Device Usage Item Name Manufacture Quantity Catalog Number Hospital Part Current Minimal Lot# / Charge Number Stock Stock Serial# Code ACIST Manifold Acist 1 52060 [id number] [id number] [id number] 5 (51752) [employer] ACIST Hand Acist 1 14709 741879 286069 654034 5 Control (35338) [employer] Tegaderm 4 x 4 3M 1 1626W 252343 807446 211022 5 (1626W) ACIST Syringe Acist 1 14659 298772 078947 726561 20 (95492) [employer] Medline Cath Cardinal 1 [id number] 608015 14640 612094 5 [facility] ([id number]) Bag Decanter Microtek 1 2001S 553923 95152 084211 5 (2001S) Medical Inc. INFLATOR Merit Merit 1 YL1569 203683 320754 186380 15 i-NeumaticoscaAttention Point (VG1355) CHOICE PT Extra Speer 1 [id number] 975201 824757 583155 5 Support 182cm Scientific wire ([id number]) SHEATH Prelude Merit 1 ZHV-4Y-74-35 432250 2006796 515314 5 6Fr 0.035 Medical (AOT-9A-31-035) GUIDE 6FR AR Medtronic 1 [id number] 849680 65846 170988 1 2.0 SH catheter ([id number]) JEFE RX 2.5 x Medtronic 1 [id number] 475656 3558179 894773 5 [id number] 15 stent ([id number]) CHOICE PT Extra Speer 1 [id number] 640828 364396 729752 5 Support J 300cm Scientific guide wire ([id number]) JEFE OTW 2.25 x Medtronic 1 [id number] 518215 00295 553396 5 [id number] 08 stent ([id number]) GUIDE 6FR ART Speer 1 [id number] 477385 355583 285180 0 4.0 SH catheter Scientific ([id number]) EXOSEAL 6Fr Cardinal 1 EX600 352641 480946 904543 10 (EX600) Health FEMSTOP Gold St Beau 1 B36873 645814 740829 069448 5 (Q88528) DIAGNOSTIC WIRE St Beau 1 542908 762396 767287 040095 30 .035 260cm J wire (514718) Signature Audit [place] Stage Time Signature Unsigned Intra-Procedure 03/02/2018 Eduard Paniagua 10:06:12 AM RT(R) Signatures Monitor : Eduard Paniagua RT Signature : Date : Time : [id number] [place] [address]
--- NOTE | ~2018-03-02 | OP ---
PATIENT NAME: COREY CAMACHO MEDICAL RECORD: [id number] :46 LOCATION:D.M2 D.2127 ADMISSION DATE: SURGEON: ASHLEIGH MEREDITH MD DATE OF OPERATION: 03/03/2018 PROCEDURES: 1. PTCA stent vein graft to RCA. 2. Selective coronary and vein graft angiography. INDICATION: Angina and coronary artery disease. PROCEDURE IN DETAIL: After informed consent was obtained and after detailed explanation of risks, benefits as well as alternative therapies, the patient elected to proceed with angiogram and angioplasty. The right femoral area was prepped and draped in normal sterile fashion. Right femoral artery was cannulated via modified Seldinger technique with placement of 6-Azeri sheath. All catheters exchanged through this sheath. FINDINGS: The right coronary vein graft has a degenerated area in the mid vessel. This was addressed with a 4.0 x 8 mm Mati stent. OVERALL IMPRESSION: Successful percutaneous transluminal coronary angioplasty stent of the vein graft to the RCA going from 80+ percent initial stenosis to 0% residual. TRANSINT:[id number] Voice Confirmation ID: [id number] DOCUMENT ID: [id number] ASHLEIGH MEREDITH MD at 1711 CC: [id number] DICTATION DATE: 03/03/18 1230 MECHANICAL LEAD: 03/03/18 1240 [id number] [place] [address]
--- NOTE | ~2018-03-02 | OP ---
PATIENT NAME: COREY CAMACHO MEDICAL RECORD: [id number] :46 LOCATION:D.M2 D.2127 ADMISSION DATE: SURGEON: ASHLEIGH MEREDITH MD DATE OF OPERATION: 03/02/2018 PROCEDURES: 1. PTCA stent vein graft to left circumflex. 2. Selective coronary angiography. INDICATION: Angina and coronary artery disease. PROCEDURE IN DETAIL: After informed consent was obtained and after a detailed description of the risks, benefits as well as alternative therapies, the patient elected to proceed with angiogram and angioplasty. The left femoral area was prepped and draped in normal sterile fashion. Left femoral artery was cannulated via modified Seldinger technique with placement of 6-Albanian sheath. All catheters exchanged through this sheath. FINDINGS: The vein graft to left circumflex has greater than 80% stenosis in the distal shaft. This was addressed with a 2.5 x 15 and 2.25 x 8 mm Mati stents. Result was 0% residual stenosis. OVERALL IMPRESSION: Successful percutaneous transluminal angioplasty stent of the vein graft to the circumflex going from 80% initial stenosis to 0% residual. TRANSINT:[id number] Voice Confirmation ID: [id number] DOCUMENT ID: [id number] ASHLEIGH MEREDITH MD at 1711 CC: [id number] DICTATION DATE: 03/02/18 1011 GAS MAIN FITTER HELPER: 03/02/18 1159 REG [facility] [address] [place] [address]
--- NOTE | ~2018-03-02 | DS ---
PATIENT:COREY CAMACHO :46 MEDICAL RECORD: [id number] DISCHARGE SUMMARY ADMISSION DATE: 03/02/18 DISCHARGE DATE: 03/03/18 DATE OF DISCHARGE: 03/03/2018. DIAGNOSES: 1. Angina. 2. Coronary artery disease. 3. Percutaneous transluminal coronary angioplasty stent vein graft to left circumflex and right coronary artery this admission. HOSPITAL COURSE: Mrs. Camacho presents with anginal symptomatology has significant disease of the vein graft to the RCA as well as left circumflex, underwent successful PTCA stent of both territories. Discharged home to continue her aspirin and Plavix. Follow up with [facility] in 1 month. TRANSINT:[id number] Voice Confirmation ID: [id number] DOCUMENT ID: [id number] ASHLEIGH MEREDITH MD at 0847 CC: [id number] DICTATION DATE: 03/04/18 1245 SHORT FILLER BUNCH MACHINE OPERATOR: 03/04/18 1251 DEP CLI 03/03/[address] [address]
--- NOTE | ~2018-03-02 | HEMODYNAMI ---
PATIENT:COREY CAMACHO MEDICAL RECORD: [id number] : 46 [id number] ADMISSION DATE: 03/02/18 Generatedon:03/03/201812:31 Patient name: COREY CAMACHO Patient #: [id number] SSN: : 1950 Date of study: 03/03/2018 Page: Of Hemodynamic Procedure Report Patient Data Patient Demographics Procedure consent was obtained First Name: COREY Gender: Female Last Name: DOUG : 1950 [facility] Initial: JACKIE Age: 68 year(s) Patient #: [id number] Race: Unknown Additional ID: [id number] Contact details [address]: [address] [place] [address] State: [place] City: [place] Zip code: [address] Past Medical History Allergies: No known allergies Admission Admission Data Admission Date: 03/02/2018 Admission Time: 7:30 Admit Source: Other Room #: D.2127 Height (in.): 61 BSA: 1.49 (m2) Height (cm.): 154.94 BMI: 21.77 (kg/m2) Weight (lbs.): 115.24 Weight (kg.): 52.27 Lab Results Lab Result Date: 03/02/2018 Lab Result Time: 7:55 Biochemistry Name Units Result Min Max BUN mg/dl 25 --(----)-* 7 18 Creatinine mg/dl 2.4 --(----)-* 0.6 1.3 CBC Name Units Result Min Max Hematocrit % 32.8 *-(----)-- 42 54 Hemoglobin g/dl 10.8 *-(----)-- 13.5 17.5 Procedure Procedure Types Cath Procedure Diagnostic Procedure Sedation Charges Moderate Sedation up to 15 minutes PCI Procedure AMI/SVG/BODY TECHNICIAN/PAINTER PTCA or Stent SVG-BMS/SAVANA Initial Procedure Description Procedure Date Procedure Date: 03/03/2018 Procedure Start Time: 12:09 Procedure End Time: 12:28 Procedure Staff Name Function Edy Jackson MD Performing Physician Danisha Graves RT Monitor Vidhya Santiago RT Scrub Elidia Nieves RN Nurse Procedure Data Cath Procedure Fluoroscopy Diagnostic fluoroscopy Total fluoroscopy Time: 6.3 time: 6.3 min min Diagnostic fluoroscopy Total fluoroscopy dose: 327 dose: 327 mGy mGy Contrast Material Contrast Material Type Amount (ml) Isovue 300 98 Entry Location Entry Primary Successful Side Size Upsize Upsize Entry Closure Florse ccessful Closure Location (Fr) 1 (Fr) 2 (Fr) Remarks Device Remarks Femoral Right 6 Fr Mechanical Fem Stop artery Short Compression Estimated blood loss: 10 ml Procedure Complications No complications Procedure Medications Medication Administration Route Dosage Oxygen NC 2 l/min Lidocaine 2% added to field 20 Heparin Flush Bag added to field 2 bags (1000units/500ml NS) 0.9% NaCl I.V. 100 ml/hr Versed I.V. 1 mg Fentanyl I.V. 50 mcg Heparin Bolus I.V. 4000 units Cardene I.C. 300 mcg Hemodynamics Rest BSA: 1.49 (m2) HGB: 10.8 (g/dl) O2 Consumption: Estimated: 130.72 (ml/min) O2 Co nsumption indexed: Estimated:87.73 (ml/min/m) Heart Rate: 58 (bpm) Snapshots Pre Cath Intra NCS Post Cath Vital Signs Time Heart Resp SPO2 etCO2 NIBP Rhythm Pain Sedation Rate (ipm) (%) (mmHg) (mmHg) Status Level (bpm) 11:51:13 59 15 92 0 111/63(90) NSR 0 (11) 10(A) , No pain 11:55:36 59 16 92 0 107/59(76) NSR 0 (11) 10(A) , No pain 11:59:24 58 16 94 31.2 112/64(84) NSR 0 (11) 10(A) , No pain 12:03:13 61 15 94 37.2 107/60(76) NSR 0 (11) 10(A) , No pain 12:07:03 59 14 95 32.7 101/58(83) NSR 0 (11) 10(A) , No pain 12:10:52 60 14 92 37.9 98/54(76) NSR 0 (11) 10(A) , No pain 12:14:45 62 17 94 39.4 88/47(63) NSR 0 (11) 9(A) , No pain 12:18:37 62 14 94 26 84/47(70) NSR 0 (11) 9(A) , No pain 12:22:51 61 15 92 40.1 87/49(67) NSR 0 (11) 9(A) , No pain 12:26:42 63 14 94 34.2 89/46(65) NSR 0 (11) 10(A) , No pain 12:30:30 62 15 95 34.9 101/46(76) NSR 0 (11) 10(A) , No pain Medications Time Medication Route Dose Verified Delivered Reason Notes Effectiveness by by 11:58:52 Oxygen NC 2 Edy Buffie used for l/min Manuel Nieves RN procedure 11:59:01 Lidocaine 2% added 20ml Edy Snow for local to vial Manuel Jackson MD anesthetic field 11:59:06 Heparin Flush added 2 Edyjoselin Snow for local Bag to bags Manuel Jackson MD anesthetic (1000units/500ml field NS) 11:59:16 0.9% NaCl I.V. 100 Edy Brenner Per physician ml/hr Manuel Nieves RN 12:09:01 Versed I.V. 1 mg Edy Brenner for sedation Manuel Nieves RN 12:09:07 Fentanyl I.V. 50 Edy Buffie for sedation mcg Manuel Nieves RN 12:11:39 Heparin Bolus I.V. 4000 Edy Brenner for verifi ed units Manuel Nieves RN anticoagulation with dr jackson 12:13:41 Cardene I.C. 300 Edy Edy for mcg Manuel Jackson MD vasodilation Procedure Log Time Note 11:36:16 Diagnostic Cath Status : Elective 11:36:42 Patient Height : 61 inches 11:36:42 Patient Weight : 115.24 lbs 11:36:47 Danisha OCONNOR(R) sent for patient. Start room use. 11:36:48 Time tracking: Regular hours (M-F 7:00 - 5:00) 11:36:53 Plan of Care:Hemodynamics will remain stable., Cardiac rhythm will remain stable., Comfort level will be maintained., Respiratory function will remain adequate., Patient/ family verbilizes understanding of procedure., Procedure tolerated without complication., Recovers from procedure without complications.. 11:50:22 Patient received from Med II to CCL 2 Alert and oriented. Tansferred to table in Supine position. 11:50:23 Warm blankets applied, and brie hugger turned on for patient comfort. 11:50:23 Correct patient and procedure confirmed by team. 11:50:25 Signed procedure consent form obtained from patient. 11:50:26 ECG and BP/O2 sat monitors applied to patient. 11:50:27 Vital chart was started 11:50:29 Baseline sample Acquired. 11:50:32 Rhythm: sinus rhythm 11:50:34 Full Disclosure recording started 11:50:37 H&P Date Dictated: 03/03/2018 Within 30 days and on chart.. 11:50:39 Pre-procedure instructions explained to patient. 11:50:40 Pre-op teaching completed and patient verbalized understanding. 11:50:42 Family in patients room. 11:50:44 Patient NPO since Midnight. 11:53:48 Patient allergic to No known allergies 11:53:54 Is the patient allergic to Iodine/contrast media? No. 11:53:55 Was the patient premedicated? Yes 11:53:56 Is patient on blood thinner?Yes 11:54:00 ACC The patient was administered the following blood thiners within the last 24 hours: ACCPlavix 11:54:02 Patient diabetic? No. 11:54:07 Snore? Yes 11:54:19 Sleep apnea? No 11:54:37 Patient pain scale 0/10 ?. 11:54:48 IV patent on arrival in left forearm with 0.9% NaCl at O. 11:54:54 Lab results completed and on chart. 11:54:59 Right groin area was prepped with chlora-prep and draped in sterile fashion 11:55:01 Alarms reviewed by R. N. 11:55:01 Sharps counted by scrub and verified by R.N. 11:55:03 Physician paged 11:55:22 Use device set Femoral Dx 11:55:24 ACIST Syringe (59072) opened to sterile field. 11:55:24 Bag Decanter (2002) opened to sterile field. 11:55:25 Medline Cath Pack ([id number]) opened to sterile field. 11:55:25 DIAGNOSTIC WIRE .035 260cm J wire ([id number]) opened to sterile field. 11:55:26 ACIST Hand Control (46611) opened to sterile field. 11:55:27 ACIST Manifold (26575) opened to sterile field. 11:55:27 DIAGNOSTIC Multipack 5Fr catheter set ([id number]) opened to sterile field. 11:55:29 PERCUTANEOUS ENTRY 19GA needle opened to sterile field. 11:58:52 Oxygen 2 l/min NC was administered by Elidia Nieves RN; used for procedure; 11:59:01 Lidocaine 2% 20ml vial added to field was administered by Edy Jackson MD; for local anesthetic; 11:59:06 Heparin Flush Bag (1000units/500ml NS) 2 bags added to field was administered by Edy Jackson MD; for local anesthetic; 11:59:16 0.9% NaCl 100 ml/hr I.V. was administered by Elidia Nieves RN; Per physician; 12:04:37 Zero performed for pressure channel P1 12:08:07 Physician arrived 12:08:08 --------ALL STOP TIME OUT------ 12:08:09 Final Timeout: patient, procedure, and site verified with staff and physician. All members of the team are in agreement. 12:08:13 Right groin site verified by team. 12:08:16 Physical assessment completed. ASA score P 2 - A patient with mild systemic disease as per Edy Jackson MD. 12:08:20 Sedation plan: IV Moderate Sedation Medication:Versed, Fentanyl 12:08:45 Procedure started. 12:09:01 Versed 1 mg I.V. was administered by Elidia Nieves RN; for sedation; 12:09:07 Fentanyl 50 mcg I.V. was administered by Elidia Nieves RN; for sedation; 12:09:34 Local anesthetic to right femoral artery with Lidocaine 2% by Edy Jackson MD.INITIAL ACCESS ONLY 12:09:47 A 6 Fr Short sheath was inserted into the Right Femoral artery 12:10:27 6 Fr AR2 guide catheter was inserted over the wire 12:11:39 Heparin Bolus 4000 units I.V. was administered by Elidia Nieves RN; for anticoagulation; verified with dr jackson 12:12:01 choice pt wire advanced. 12:12:13 Wire advanced across lesion. 12:13:41 Cardene 300 mcg I.C. was administered by Eyd Jackson MD; for vasodilation; 12:15:07 Stent removed. unable to cross lesion. 12:17:17 Inflate balloon Inflation number: 1 A EUPHORA 3.5 x 15 Balloon ([id number]) was prepped and advanced across the Aorta Right -> Mid RCA, then inflated to 15 RTUE for 0:18 (min:sec). 12:18:22 Balloon removed. damaged. 12:19:40 Stent removed. unable to cross lesion. 12:20:49 Inflate balloon Inflation number: 2 A NC EUPHORA 3.5 x 8 balloon ([id number]) was prepped and advanced across the Aorta Right -> Mid RCA, then inflated to 11 TRUE for 0:08 (min:sec). 12:21:10 Balloon removed over the wire. 12:22:48 Place stent Inflation Number: 3 A JEFE RX 4.0 x 08 stent ([id number]) was prepped and advanced across the Aorta Right -> Mid RCA. The stent was deployed at 17 TRUE for 0:13 (min:sec). 12:24:26 Stent catheter was removed intact over wire. 12:24:27 Wire removed. 12:24:28 Guide catheter removed. 12:24:54 FEMSTOP Gold ([id number]) opened to sterile field. 12:24:56 CHOICE PT Extra Support 182cm wire ([id number]) opened to sterile field. 12:24:57 INFLATOR Merit BasixCompak (MZ1227) opened to sterile field. 12:24:59 SHEATH 6Fr Prelude ([id number]) opened to sterile field. 12:25:35 Sheath removed intact; hemostasis achieved with Mechanical Compression to the Right Femoral artery. 12:25:38 Procedure ended.(Physican Out) 12:25:48 Fluoroscopy time 06.30 minutes. 12::53 Fluoroscopy dose: 327 mGy 12:25:53 Flurop Dose total: 327 12:25:58 Contrast amount:Isovue 300 98ml. 12:26:00 Sharps counted by scrub and verified by R.N. 12:26:08 Insertion/operative site no bleeding no hematoma. 12:26:49 Femstop placed over the right femoral artery at 65 mmHg. Hemostasis achieved. 12:26:54 Post-procedure physical assessment completed. ASA score P 2 - A patient with mild systemic disease as per Edy Jackson MD. 12:26:58 Post procedure rhythm: unchanged. 12:27:00 Estimated blood loss: 10 ml 12:27:02 Post procedure instruction explained to patient.Patient verbalizes understanding. 12:27:35 Procedure type changed to Cath procedure, Diagnostic procedure, Sedation Charges, Moderate Sedation up to 15 minutes, PCI procedure, AMI/SVG/BODY TECHNICIAN/PAINTER PTCA or Stent, SVG-BMS/SAVANA Initial 12:27:36 Procedure and supply charges have been captured, reviewed, submitted and are correct. 12:28:11 Procedure Complication : No complications 12:28:19 Vital chart was stopped 12::24 Report given to [facility]. 12::28 Patient transfered to [facility] with Bed. 12:28:29 Procedure ended. 12:28:29 Full Disclosure recording stopped 12:28:39 End room use (Document Last) Intervention Summary Intervention Notes Time ActionType Lesion and Equipment Used Action# Pressure Duration Attributes 12:17:17 Inflate Aorta Right EUPHORA 3.5 x 1 15 00:18 balloon -> Mid RCA 15 Balloon ([id number]) 12:20:49 Inflate Aorta Right NC EUPHORA 3.5 2 11 00:08 balloon -> Mid RCA x 8 balloon ([id number]) 12:22:48 Place stent Aorta Right JEFE RX 4.0 x 3 17 00:13 -> Mid RCA 08 stent ([id number]) Device Usage Item Name Manufacture Quantity Catalog Number Hospital Part Current M inimal Lot# / Charge Number Stock Stock Serial# Code ACIST Syringe Acist 1 05437 154800 366723 185289 2 0 (82275) Medical Systems Inc Bag Decanter Microtek 1 2001S 726871 36770 575454 5 () Medical Inc. Medline Cath Cardinal 1 [id number] 486592 36458 031724 5 [facility] ([id number]) DIAGNOSTIC St Beau 1 278864 377920 268000 917572 3 0 WIRE .035 260cm J wire (412088) ACIST Hand Acist 1 43080 355836 377818 832300 5 Control Medical (76940) Systems Inc ACIST Manifold Acist 1 31054 386484 949736 327732 5 (00370) Medical Systems Inc DIAGNOSTIC Cardinal 1 [id number] 964287 72728 685510 3 0 Multipack 5Fr Health catheter set ([id number]) PERCUTANEOUS Cook Medical 1 [id number] 718862 990613 5 ENTRY 19GA needle EUPHORA 3.5 x Medtronic 1 [id number] 569292 863706 085493 5 [id number] 15 Balloon ([id number]) NC EUPHORA 3.5 Medtronic 1 [id number] 256447 019611 757872 1 [id number] x 8 balloon ([id number]) JEFE RX 4.0 x Medtronic 1 [id number] 081789 6350292 883152 5 [id number] 08 stent ([id number]) FEMSTOP Gold St Beau 1 [id number] 303126 944944 848026 5 ([id number]) CHOICE PT [place] 1 [id number] 408064 377318 010405 5 Extra Support Scientific 182cm wire ([id number]) INFLATOR Merit Merit 1 BO9215 066218 492323 383788 1 5 [facility] ([id number]) SHEATH 6Fr Merit 1 [id number] 280917 601343 945154 5 Prelude Medical ([id number]) Signature Audit [place] Stage Time Signature Unsigned Intra-Procedure 03/03/2018 Danisha Graves 12:31:24 PM RT(R) Signatures Monitor : Danisha Graves Signature : RT Date : Time : [place] [id number] [facility] [place] [address]
[~2018-03-02 07:30] MED LIST: BAYER CHEWABLE81 MG PO; COREG12.5 MG PO; LIPITOR80 MG PO; PLAVIX75 MG PO; PRINIVIL20 MG PO; TRAZODONE HCL50 MG PO
[2018-03-02 07:55] VITALS: BP 127/71; BMI 21.7
[2018-03-02 08:03] LABS: BASOPHILS 0.7 % (0-2); EOSINOPHILS 7.2 % (0-7); HEMATOCRIT 32.8 % (36.0-48.0); HEMOGLOBIN 10.8 g/dL (12-16); IMMATURE GRANULOCYTES 0.2 % (0-5); LYMPHOCYTES 24.9 % (15-50); MCH 31.1 pg (26.0-34.0); MCHC 32.9 g/dL (31.0-37.0); MCV 94.5 fL (80.0-100.0); MEAN PLATELET VOLUME 8.8 fL (7.4-10.4); MONOCYTES 8.5 % (2-11); NEUTROPHILS 58.5 % (40-80); PLATELET COUNT 145 10x3/uL (130-400); RBC 3.47 10x6/uL (4.00-5.40); WBC 8.5 10x3/uL (4.8-10.8)
[2018-03-02 08:20] LABS: ANION GAP 12.9 mmol/L (8-16); CALCIUM 9.8 mg/dL (8.5-10.1); CARBON DIOXIDE 27.1 mmol/L (21.0-32.0); CREATININE - SERUM 2.4 mg/dL (0.6-1.3)
[2018-03-02 14:23] LABS: BASOPHILS 0.8 % (0-2); EOSINOPHILS 6.7 % (0-7); HEMATOCRIT 26.9 % (36.0-48.0); HEMOGLOBIN 8.6 g/dL (12-16); IMMATURE GRANULOCYTES 0.3 % (0-5); LYMPHOCYTES 40.1 % (15-50); MCH 30.7 pg (26.0-34.0); MCV 96.1 fL (80.0-100.0); MEAN PLATELET VOLUME 8.4 fL (7.4-10.4); MONOCYTES 8.3 % (2-11); NEUTROPHILS 43.8 % (40-80); PLATELET COUNT 123 10x3/uL (130-400); RDW 16.1 % (11.5-14.5); WBC 6.3 10x3/uL (4.8-10.8)
[2018-03-02 14:38] LABS: ANION GAP 12.8 mmol/L (8-16); CALCIUM 8.1 mg/dL (8.5-10.1); CREATININE - SERUM 2.1 mg/dL (0.6-1.3); POTASSIUM - SERUM 4.8 mmol/L (3.5-5.1)
[2018-03-03] VITALS (7 sets, daily range): BP systolic 88–127; BP diastolic 47–72; Ht 154.9 cm; Wt 49.1 kg
[2018-03-03 13:02] LABS: BASOPHILS 0.4 % (0-2); EOSINOPHILS 5.1 % (0-7); HEMATOCRIT 29.2 % (36.0-48.0); HEMOGLOBIN 9.6 g/dL (12-16); IMMATURE GRANULOCYTES 0.1 % (0-5); LYMPHOCYTES 28.8 % (15-50); MCH 30.7 pg (26.0-34.0); MCHC 32.9 g/dL (31.0-37.0); MEAN PLATELET VOLUME 8.5 fL (7.4-10.4); MONOCYTES 8.2 % (2-11); NEUTROPHILS 57.4 % (40-80); PLATELET COUNT 101 10x3/uL (130-400); RBC 3.13 10x6/uL (4.00-5.40); RDW 16.1 % (11.5-14.5); WBC 7.3 10x3/uL (4.8-10.8)
[2018-03-03 13:06] LABS: MCV 93.3 fL (80.0-100.0)
[2018-03-03 13:17] LABS: ANION GAP 8.9 mmol/L (8-16); CALCIUM 7.8 mg/dL (8.5-10.1); CARBON DIOXIDE 26.2 mmol/L (21.0-32.0); CREATININE - SERUM 1.9 mg/dL (0.6-1.3); POTASSIUM - SERUM 4.1 mmol/L (3.5-5.1)
== END 2018-03-03 20:33 | disposition home or self-care (01) ==
LOC: D.CATH 07:30 → D.M2 20:46 → D.CATH 03-03 20:33
PROVIDERS: Internal Medicine Interventional Cardiology
DX: I25.119 Atherosclerotic heart disease of native coronary artery with unspecified angina pectoris (principal); I25.719 Atherosclerosis of autologous vein coronary artery bypass graft(s) with unspecified angina pectoris; I10 Essential (primary) hypertension; E78.5 Hyperlipidemia, unspecified; Z01.812 Encounter for preprocedural laboratory examination
CPT/HCPCS: C9604; C9605

== ENCOUNTER 2018-12-14 08:41 | Outpatient (CLI) | payer MEDICARE ==
[~2018-12-14] VITALS: Ht 154.9 cm; Wt 52.7 kg
--- NOTE | ~2018-12-14 | HEMODYNAMI ---
PATIENT:COREY CAMACHO MEDICAL RECORD: [id number] : 46 LOCATION:[facility] ADMISSION DATE: 12/14/18 Generatedon:12/14/201811:07 Patient name: COREY CAMACHO Patient #: [id number] SSN: : 1950 Date of study: 12/14/2018 Page: Of Hemodynamic Procedure Report Patient Data Patient Demographics Procedure consent was obtained First Name: COREY Gender: Female Last Name: DOUG : 1950 [facility] Initial: JACKIE Age: 68 year(s) Patient #: [id number] Race: Unknown Additional ID: [id number] Contact details [address]: [address] [place] [address] State: [place] City: [place] Zip code: [address] Past Medical History Allergies: No known allergies Admission Admission Data Admission Date: 12/14/2018 Admission Time: 8:41 Admit Source: Other Height (in.): 61 BSA: 1.5 (m2) Height (cm.): 154.94 BMI: 22.11 (kg/m2) Weight (lbs.): 117 Weight (kg.): 53.07 Lab Results Lab Result Date: 12/14/2018 Lab Result Time: 0:00 Biochemistry Name Units Result Min Max BUN mg/dl 26 --(----)-* 7 18 Creatinine mg/dl 1.5 --(----)-* 0.6 1.3 CBC Name Units Result Min Max Hematocrit % 36.4 *-(----)-- 42 54 Hemoglobin g/dl 11.8 *-(----)-- 13.5 17.5 Procedure Procedure Types Cath Procedure Diagnostic Procedure LHC LHC w/Coronaries w/Grafts Sedation Charges Moderate Sedation up to 15 minutes PCI Procedure AMI/SVG/HIRED WORKER PTCA or Stent SVG-BMS/SAVANA Initial Procedure Description Procedure Date Procedure Date: 12/14/2018 Procedure Start Time: 10:35 Procedure End Time: 11:04 Procedure Staff Name Function Edy Jackson MD Performing Physician Brandie Mario RT Monitor Darrick Paige RT Scrub Reggie Gómez RN Nurse Oscar Shepard RT Senior Technical Support Analyst Procedure Data Cath Procedure Fluoroscopy Diagnostic fluoroscopy Total fluoroscopy Time: time: 10.1 min 10.1 min Diagnostic fluoroscopy Total fluoroscopy dose: dose: 241.25 mGy 241.25 mGy Contrast Material Contrast Material Type Amount (ml) Isovue 300 154 Entry Location Entry Primary Successful Side Size Upsize Upsize Entry Closure Succes sful Closure Location (Fr) 1 (Fr) 2 (Fr) Remarks Device Remarks Femoral Right 5 Fr Exoseal artery Estimated blood loss: 10 ml Diagnostic catheters Device Type Used For End Catheter Placement MULTIPACK Pigtail 5 Fr Procedure catheter MULTIPACK JL 4.0 5Fr Procedure catheter DIAGNOSTIC AR2 MOD 5 Fr Procedure catheter ([id number]) DIAGNOSTIC AL2 5Fr Procedure catheter ([id number]) DIAGNOSTIC LCB 5Fr Procedure catheter ([id number]) Procedure Complications No complications Procedure Medications Medication Administration Route Dosage 0.9% NaCl I.V. 100 ml/hr Oxygen etCO2 Nasal cannula 2 l/min Heparin Flush Bag added to field 2 bags (1000units/500ml NS) Lidocaine 2% added to field 20 Versed I.V. 2 mg Fentanyl I.V. 100 mcg Heparin Bolus I.V. 4000 units Hemodynamics Rest BSA: 1.5 (m2) HGB: 11.8 (g/dl) O2 Consumption: Estimated: 135.9 (ml/min) O2 Cons umption indexed: Estimated:90.6 (ml/min/m) Heart Rate: 66 (bpm) Snapshots Pre Cath Intra NCS Post Cath Vital Signs Time Heart Resp SPO2 etCO2 NIBP (mmHg) Rhythm Pain Sedation Rate (ipm) (%) (mmHg) Status Level (bpm) 10:22:01 61 15 98 0 132/67(110) NSR 0 (11) 10(A) , No pain 10:26:19 67 19 100 0 126/63(104) NSR 0 (11) 10(A) , No pain 10:31:20 62 12 99 0 105/53(83) NSR 0 (11) 10(A) , No pain 10:35:32 61 12 98 0 107/57(84) NSR 0 (11) 10(A) , No pain 10:39:37 70 14 98 0 94/52(73) NSR 0 (11) 10(A) , No pain 10:43:47 72 19 98 0 92/48(81) NSR 0 (11) 9(A) , No pain 10:47:57 72 14 98 0 92/48(73) NSR 0 (11) 9(A) , No pain 10:52:05 69 18 99 0 99/54(77) NSR 0 (11) 9(A) , No pain 10:56:17 73 14 99 0 84/44(65) NSR 0 (11) 10(A) , No pain 11:00:25 70 15 99 0 92/47(68) NSR 0 (11) 10(A) , No pain 11:04:35 69 11 99 0 101/48(81) NSR 0 (11) 10(A) , No pain Medications Time Medication Route Dose Verified Delivered Reason Notes Effectiveness by by 10:26:14 0.9% NaCl I.V. 100 Reggie Reggie Per physician ml/hr Dalia Gómez RN RN 10:26:24 Oxygen etCO2 2 Reggie Reggie for low 02 sats Nasal l/min Dalia Gómez cannula RN RN 10:26:34 Heparin Flush added 2 Reggie Reggie used for Bag to bags Dalia Gómez procedure (1000units/500ml RN RN NS) 10:26:46 Lidocaine 2% added 20ml Reggie Reggie for local to vial Dalia Gómez anesthetic field HAYNES RN 10:36:11 Versed I.V. 2 mg Reggie Reggie for sedation Dalia Gómez RN RN 10:36:21 Fentanyl I.V. 100 Reggie Reggie for sedation mcg Dalia Gómez RN RN 10:52:23 Heparin Bolus I.V. 4000 Reggie Reggie for units Dalia Gómez anticoagulation RN roads superintendent Log Time Note 10:00:50 Oscar OCONNOR(R) sent for patient. Start room use. 10:16:09 Informed consent obtained and on chart 10:16:12 Admit Source: Other 10:16:49 Diagnostic Cath status Elective 10:16:54 Time tracking: Regular hours (M-F 7:00 - 5:00) 10:16:58 Plan of Care:Hemodynamics will remain stable., Cardiac rhythm will remain stable., Comfort level will be maintained., Respiratory function will remain adequate., Patient/ family verbilizes understanding of procedure., Procedure tolerated without complication., Recovers from procedure without complications.. 10:17:02 Patient received from Pre/Post Procedure Room to CCL 3 Alert and oriented. Tansferred to table in Supine position. 10:17:03 Warm blankets applied, and brie hugger turned on for patient comfort. 10:17:03 Correct patient and procedure confirmed by team. 10:17:04 ECG and BP/O2 sat monitors applied to patient. 10:17:04 Pre-procedure instructions explained to patient. 10:17:05 Pre-op teaching completed and patient verbalized understanding. 10:20:54 Vital chart was started 10:20:58 Baseline sample Acquired. 10:21:04 Rhythm: sinus rhythm 10:21:05 Full Disclosure recording started 10:21:07 Family in patients room. 10:21:09 Patient NPO since Midnight. 10:21:13 Patient allergic to No known allergies 10:21:16 Is patient on blood thinner?Yes 10:21:19 ACC The patient was administered the following blood thiners within the last 24 hours: ACCPlavix 10:21:21 Patient diabetic? No. 10:21:24 Patient not . Patient is over age 55. 10:21:26 Previous problem with sedation/anesthesia? No ? 10:21:26 Snore? Yes 10:21:28 Sleep apnea? No 10:21:29 Deviated septum? No 10:21:33 Opens mouth fully? Yes 10:21:33 Sticks out tongue? Yes 10:21:35 Airway obstruction? No ? 10:21:36 Dentures? No ? 10:21:44 Pre procedure: right dorsailis pedis pulse 1+ Palpable, but thready & weak; easily obliterated 10:21:47 Patient pain scale 0/10 ?. 10:22:01 IV patent on arrival in left hand with 0.9% NaCl at [facility]. 10:22:30 Lab Result : BUN 26 mg/dl 10:22:30 Lab Result : Creatinine 1.5 mg/dl 10:22:30 Lab Result : Hemoglobin 11.8 g/dl 10:22:30 Lab Result : Hematocrit 36.4 % 10:22:33 Lab results completed and on chart. 10:22:37 Right groin area was prepped with chlora-prep and draped in sterile fashion 10:22:37 Alarms reviewed by R. N. 10:22:38 Sharps counted by scrub and verified by R.N. 10:22:40 Use device set Femoral Dx 10:22:41 ACIST Syringe (87211) opened to sterile field. 10:22:41 Bag Decanter (2002S) opened to sterile field. 10:22:42 ACIST Hand Control (72631) opened to sterile field. 10:22:43 ACIST Manifold (31940) opened to sterile field. 10:22:43 Tegaderm 4 x 4 (1626W) opened to sterile field. 10:22:44 Medline Cath Pack ([id number]) opened to sterile field. 10:22:45 DIAGNOSTIC WIRE .035 260cm J wire (122133) opened to sterile field. 10:22:46 DIAGNOSTIC Multipack 5Fr catheter set (CQ1976) opened to sterile field. 10:22:47 SHEATH 5FR Monon (LAG227) opened to sterile field. 10:26:14 0.9% NaCl 100 ml/hr I.V. was administered by Reggie Gómez RN; Per physician; 10:26:24 Oxygen 2 l/min etCO2 Nasal cannula was administered by Reggie Gómez RN; for low 02 sats; 10:26:34 Heparin Flush Bag (1000units/500ml NS) 2 bags added to field was administered by Reggie Gómez RN; used for procedure; 10:26:46 Lidocaine 2% 20ml vial added to field was administered by Reggie Gómez RN; for local anesthetic; 10:26:56 Baseline sample Acquired. 10:26:59 Baseline sample Acquired. 10:27:13 H&P Date Dictated: 11/25/2018 Within 30 days and on chart., H&P Addendum completed by physician on day of procedure. (MUST COMPLETE FOR ALL OUTPATIENTS). 10:27:22 Patient Height : 61 inches 10:27:24 Patient Weight : 117 lbs 10:30:56 Zero performed for pressure channel P1 10:31:24 --------ALL STOP TIME OUT------ 10:31:24 Final Timeout: patient, procedure, and site verified with staff and physician. All members of the team are in agreement. 10:31: Right groin site verified by team. 10:31:28 Maximum allowable Isovue 300 dose 300ml. Physician notified. (300ml for normal creatinines. For patients with creatinine of 1.7 or higher multiply weight(kg) x 5 divided by creatinine.) 10:31:32 Fire Safety Assessment: A--An alcohol-based skin anteseptic being used preoperatively., C--Open oxygen or nitrous oxide is being used., D--An ESU, laser, or fiber-optic light is being used. 10:31:34 Physical assessment completed. ASA score P 2 - A patient with mild systemic disease as per Edy Jackson MD. 10::37 Sedation plan: IV Moderate Sedation Medication:Versed, Fentanyl 10:35:26 Procedure started. 10:35:32 Local anesthetic to right femoral artery with Lidocaine 2% by Edy Jackson MD.INITIAL ACCESS ONLY 10:36:11 Versed 2 mg I.V. was administered by Reggie Gómez RN; for sedation; 10:36:19 A 5 Fr sheath was inserted into the Right Femoral artery 10:36:21 Fentanyl 100 mcg I.V. was administered by Reggie Gómez RN; for sedation; 10:36:34 A MULTIPACK Pigtail 5 Fr catheter was advanced over the wire and used for Procedure. 10:36:57 LV gram done using BLANKENSHIP 10:37:00 Injector settings: Ml/sec: 10, Volume: 20, 10:38:00 EF : 55 % 10:38:01 Catheter removed. 10:38:07 A MULTIPACK JL 4.0 5Fr catheter was advanced over the wire and used for Procedure. 10:38:52 LCA angiography performed. 10:39:41 Catheter removed. 10:41:05 A DIAGNOSTIC AR2 MOD 5 Fr catheter ([id number]) was advanced over the wire and used for Procedure. 10:41:39 SVG to RCA occluded. 10:42:14 NUNN to Ramus angiography performed. 10:42:23 Catheter removed. 10:42:33 A DIAGNOSTIC AL2 5Fr catheter (889608Y) was advanced over the wire and used for Procedure. 10:49:16 UNABLE TO ENGAGE SVG 10:49:47 A DIAGNOSTIC LCB 5Fr catheter (545038L) was advanced over the wire and used for Procedure. 10:50:42 SVG to LAD angiography performed. 10:50:45 Catheter removed. 10:51:25 SHEATH 6FR Monon (PVE192) opened to sterile field. 10:51:29 CHOICE PT Extra Support 182cm wire ([id number]) opened to sterile field. 10:51:33 INFLATOR Merit BasixCompak (FF2693) opened to sterile field. 10:51:56 GUIDE 6FR ART 3.5 catheter ([id number]) opened to sterile field. 10:52:16 6 Fr ART 3.5 guide catheter was inserted over the wire 10:52:23 Heparin Bolus 4000 units I.V. was administered by Reggie Gómez RN; for anticoagulation; 10:53:17 Guide Catheter removed. unable to cannulate vessel. 10:53:27 GUIDE 6FR ART 4.0 catheter ([id number]) opened to sterile field. 10:53:53 6 Fr ART 4 guide catheter was inserted over the wire 10:55:08 CHOICE ES 182 wire advanced. 10:55:13 Wire advanced across lesion. 10:56:46 Place stent Inflation Number: 1 A JEFE RX 4.0 x 18 stent ([id number]) was prepped and advanced across the Aorta Left -> Mid LAD. The stent was deployed at 21 TRUE for 0:10 (min:sec). 10:56:56 Wire removed. 10:56:57 Guide catheter removed. 10:56:58 Stent catheter was removed intact over wire. 10:57:43 GUIDE 6FR AR 2.0 catheter (SS9AI73) opened to sterile field. 10:57:54 6 Fr AR 2 guide catheter was inserted over the wire 10:59:10 CHOICE PT Extra Support 182cm wire ([id number]) opened to sterile field. 10:59:19 CHOICE ES 182 wire advanced. 10:59:28 UNABLE TO CROSS SVG RCA 10:59:30 Wire removed. 10:59:36 Guide catheter removed. 11:00:09 EXOSEAL 6Fr (EX600) opened to sterile field. 11:00:24 Sheath removed intact; hemostasis achieved with Exoseal to the Right Femoral artery. 11:00:45 Procedure ended.(Physican Out) 11:01:04 Fluoroscopy time 10.10 minutes. 11:01:15 Flurop Dose total: 241.25 11:01:15 Fluoroscopy dose: 241.25 mGy 11:01:18 Contrast amount:Isovue 300 154ml. 11:01:20 Sharps counted by scrub and verified by R.N. 11:01:23 Post-op/insertion site Right Femoral artery dressed using a 4 x 4 and Tegaderm. 11:01:26 Post-procedure physical assessment completed. ASA score P 2 - A patient with mild systemic disease as per Edy Jackson MD. 11:01:38 Post procedure rhythm: sinus rhythm 11::40 Estimated blood loss: 10 ml 11::41 Post procedure instruction explained to patient.Patient verbalizes understanding. 11::41 Patient needs reinforcement of post procedure teaching. 11:02:17 Procedure type changed to Cath procedure, Diagnostic procedure, LHC, LHC w/Coronaries w/Grafts, Sedation Charges, Moderate Sedation up to 15 minutes, PCI procedure, AMI/SVG/HIRED WORKER PTCA or Stent, SVG-BMS/SAVANA Initial 11:04:10 Procedure and supply charges have been captured, reviewed, submitted and are correct. 11:04:12 Procedure Complication : No complications 11:04:14 Vital chart was stopped 11:04:15 See physician's report for complete and final results. 11:04:17 Report given to Pre/Post Procedure Room. 11:04:20 Patient transfered to Pre/Post Procedure Room with Bed. 11:04:22 Procedure ended. 11:04:22 Full Disclosure recording stopped 11:04:25 End room use (Document Last) Intervention Summary Intervention Notes Time ActionType Lesion and Equipment Used Action# Pressure Duration Attributes 10:56:46 Place stent Aorta Left JEFE RX 4.0 x 1 21 00:10 -> Mid LAD 18 stent ([id number]) Device Usage Item Name Manufacture Quantity Catalog Number Hospital Part Current M inimal Lot# / Charge Number Stock Stock Serial# Code ACIST Syringe Acist 1 97431 484335 230015 596554 2 0 (36540) Medical Systems Inc Bag Decanter Microtek 1 547861 26672 735637 5 () Medical Inc. ACIST Hand Acist 1 65670 921759 521288 084696 5 Control Medical (97590) Systems Inc ACIST Manifold Acist 1 84933 657411 525898 769567 5 (55668) Medical Systems Inc Tegaderm 4 x 4 3M 1 1626W 201552 432030 950769 5 (1626W) Medline Cath Medline 1 [id number] 997262 28559 458227 5 Pack ([id number]) DIAGNOSTIC St Beau 1 949181 710583 629329 400630 3 0 WIRE .035 260cm J wire (319380) DIAGNOSTIC Cardinal 1 VM5617 983481 60109 092693 3 0 Multipack 5Fr Health catheter set (NO3205) SHEATH 5FR Terumo 1 LZH006 308589 399411 131211 5 Monon (EDO322) MULTIPACK Cardinal 1 170530 5 Pigtail 5 Fr Health catheter MULTIPACK JL Cardinal 1 801198 5 4.0 5Fr Health catheter DIAGNOSTIC AR2 Cardinal 1 [id number] 920832 521511 626421 2 0 MOD 5 Fr Health catheter (252823Q) DIAGNOSTIC AL2 Cardinal 1 [id number] 552719 414538 250212 1 5 5Fr catheter Health (819595W) DIAGNOSTIC LCB Cardinal 1 [id number] 636324 341476 664458 5 5Fr catheter Health (639603V) SHEATH 6FR Terumo 1 LRB268 574475 070838 664710 4 0 Monon (BOD888) CHOICE PT [place] 2 [id number] 100729 871328 485088 5 Extra Support Scientific 182cm wire (4708933P1) INFLATOR Merit Merit 1 QS2279 321461 196686 979054 1 5 Floqq (EM3421) GUIDE 6FR ART [place] 1 [id number] 544573 016273 809267 0 3.5 catheter Scientific (995935182) GUIDE 6FR ART [place] 1 [id number] 861227 804879 818392 0 4.0 catheter Scientific (967178322) JEFE RX 4.0 x Medtronic 1 [id number] 911690 1382138 569160 5 [id number] 18 stent ([id number]) GUIDE 6FR AR Medtronic 1 [id number] 279428 46133 650701 1 2.0 catheter (BE7ET92) EXOSEAL 6Fr Cardinal 1 EX600 429850 526451 928204 1 0 (EX600) Health Signature Audit [place] Stage Time Signature Unsigned Intra-Procedure 12/14/2018 Brandie Mario 11:07:40 AM RT(R) Signatures Monitor : Brandie Mario Signature : RT Date : Time : [address] [address]
[2018-12-14] MEDS ORDERED: SYNTHROID175 MCG PO (08:58)
[2018-12-14] MEDS ORDERED: PROZAC40 MG PO (08:59)
[2018-12-14 09:18] VITALS: BP 124/39; Ht 154.9 cm; Wt 52.7 kg
[2018-12-14 09:23] LABS: BASOPHILS 0.3 % (0-2); EOSINOPHILS 4.2 % (0-7); HEMATOCRIT 36.4 % (36.0-48.0); HEMOGLOBIN 11.8 g/dL (12-16); IMMATURE GRANULOCYTES 0.1 % (0-5); LYMPHOCYTES 24.2 % (15-50); MCH 29.6 pg (26.0-34.0); MCHC 32.4 g/dL (31.0-37.0); MCV 91.5 fL (80.0-100.0); MEAN PLATELET VOLUME 9.3 fL (7.4-10.4); MONOCYTES 10.7 % (2-11); NEUTROPHILS 60.5 % (40-80); RBC 3.98 10x6/uL (4.00-5.40); RDW 12.8 % (11.5-14.5); WBC 7.7 10x3/uL (4.8-10.8)
[2018-12-14 09:32] LABS: PLATELET COUNT 196 10x3/uL (130-400)
[2018-12-14 09:34] LABS: ANION GAP 12.5 mmol/L (8-16); CALCIUM 9.3 mg/dL (8.5-10.1); CARBON DIOXIDE 25.9 mmol/L (21.0-32.0); CREATININE - SERUM 1.5 mg/dL (0.6-1.3); POTASSIUM - SERUM 4.4 mmol/L (3.5-5.1)
--- NOTE | 2018-12-14 11:31 | NUR ---
RIGHT GROIN DRESSING C/D/I. NO S/S OF HEMATOMA NOTED. RIGHT PEDAL PULSE PALPABLE. NO NEEDS AT THIS TIME. VSS.
--- NOTE | 2018-12-14 12:00 | NUR ---
RIGHT GROIN DRESSING C/D/I. NO S/S OF HEMATOMA NOTED. VSS. CALL LIGHT WITHIN REACH.
--- NOTE | 2018-12-14 12:30 | NUR ---
RIGHT GROIN DRESSING C/D/I. NO S/S OF HEMATOMA NOTED. RIGHT PEDAL PULSE PALPABLE.
--- NOTE | 2018-12-14 13:00 | NUR ---
PT RESTING COMFORTABLY. VSS. RIGHT GROIN DRESSING C/D/I. NO S/S OF HEMATOMA NOTED. RIGHT PEDAL PULSE PALPABLE. NO NEEDS AT THIS TIME.
--- NOTE | 2018-12-14 14:02 | NUR ---
RIGHT GROIN DRESSING C/D/I. NO S/S OF HEMATOMA NOTED. VSS. HEAD OF BED INC TO 30 DEGREES. TOLERATED WELL. SET UP WITH SANDWICH TRAY AND DRINK.
--- NOTE | 2018-12-14 14:46 | NUR ---
RIGHT GROIN DRESSING C/D/I. NO S/S OF HEMATOMA NOTED. LEFT AC PIV D/C'D WITH CATH TIP INTACT. PT TOLERATED WELL. PT INSTRUCTED TO GET UP AND GET DRESSED.
--- NOTE | 2018-12-14 15:00 | NUR ---
DISCUSSED DISCHARGE INSTRUCTIONS WITH PT AND PT'S FAMILY. THEY VOICED UNDERSTANDING. PT TAKEN TO RESTROOM. PT VOIDED WITHOUT DIFFICULTY. PT TAKEN OUT TO VEHICLE WITH ALL BELONGINGS AND PAPERWORK. NO S/S OF DISTRESS NOTED.
--- NOTE | 2018-12-17 14:57 | OP ---
PATIENT NAME: COREY CAMACHO MEDICAL RECORD: [id number] :46 LOCATION:D.CAT ADMISSION DATE: SURGEON: ASHLEIGH MEREDITH MD DATE OF OPERATION: 12/14/2018 DATE OF SERVICE: 12/14/2018 PROCEDURES: 1. PTCA stent vein graft to LAD. 2. Left heart catheterization. 3. Selective coronary angiography. 4. Vein graft angiography. INDICATION: Angina and coronary artery disease. PROCEDURE IN DETAIL: After informed consent was obtained and after a detailed description of the risks, benefits as well as alternative therapies, the patient elected to proceed with angiogram and angioplasty. The right femoral area was prepped and draped in normal sterile fashion. Right femoral artery was cannulated via modified Seldinger technique with placement of 6-Kosovan sheath. All catheters exchanged through this sheath. FINDINGS: The left ventriculogram was performed in standard 30-degree BLANKENSHIP view, reveals good cardiac wall motion, ejection fraction 55%. SELECTIVE CORONARY ANGIOGRAPHY: 1. Left main is 80% stenosed. 2. Left anterior descending is closed. 3. Left circumflex is closed. 4. The right coronary artery is closed. 5. Vein graft to the LAD is patent. There are previously placed stents. There is an 85% in-stent restenosis. 6. Vein graft to the left circumflex is patent. The distal circumflex is diffusely diseased, but patent. 7. Vein graft to the right coronary artery is closed. This is a new finding since the last angiogram. PTCA STENT OF THE VEIN GRAFT TO THE LAD: The stent used was a 4.0 x 18-mm Voss taken at 21 atmospheres. Result was 0% residual stenosis. We attempted to wire the total occluded vein graft to the RCA. This wire would not pass the organized thrombus in this vein graft. OVERALL IMPRESSION: Successful percutaneous transluminal coronary angioplasty stent of the vein graft to the left anterior descending going from 85% initial stenosis to 0% residual. TRANSINT:[id number] Voice Confirmation ID: [id number] DOCUMENT ID: [id number] OPERATIVE REPORT [id number] COREY CAMACHO JEFFREY MD at 1457 CC: [id number] DICTATION DATE: 12/14/18 1105 CORPORATE REPRESENTATIVE: 12/14/18 1132 DEP CLI 12/14/18 [facility] [address] [place] [address]
== END 2018-12-14 15:00 | disposition home or self-care (01) ==
LOC: D.CATH 08:41
PROVIDERS: ATTEND Internal Medicine Interventional Cardiology
DX: I25.119 Atherosclerotic heart disease of native coronary artery with unspecified angina pectoris (principal); Z01.812 Encounter for preprocedural laboratory examination
CPT/HCPCS: 93459; C9604

== ENCOUNTER 2020-01-06 07:23 | Outpatient (CLI) | payer MEDICARE ==
[~2020-01-06] VITALS: Ht 154.9 cm; Wt 62.3 kg
--- NOTE | ~2020-01-06 | OP ---
PATIENT NAME: COREY CAMACHO MEDICAL RECORD: [id number] :46 LOCATION:D.CAT ADMISSION DATE: SURGEON: ASHLEIGH MEREDITH MD DATE OF OPERATION: 01/06/2020 PROCEDURES: 1. Left heart catheterization. 2. Selective coronary angiography. 3. Vein graft angiography. 4. NUNN angiography. 5. Left ventriculogram. INDICATION: Angina and coronary artery disease. PROCEDURE IN DETAIL: After informed consent was obtained and after a detailed description of risks, benefits as well as alternative therapies, the patient elected to proceed with angiogram and a heart catheterization. The right femoral area was prepped and draped in normal sterile fashion. Right femoral artery was cannulated via modified Seldinger technique with placement of 6-Upper Sorbian sheath. All catheters exchanged through this sheath. FINDINGS: Left ventriculogram was performed in a standard 30-degree BLANKENSHIP view, reveals global hypokinesis throughout all segments. Overall ejection fraction 35%. SELECTIVE CORONARY ANGIOGRAPHY: 1. Left main is with 80% and 90% stenosis. 2. The left anterior descending is totally occluded. 3. Ramus intermedius is totally occluded. 4. The left circumflex is patent. The left main stenosis extends beyond the circumflex and it is approximately 180 degree turn going back to the left circumflex after this stenosis, but the circumflex is patent. 5. Right coronary artery is totally occluded 6. Vein graft to the RCA is totally occluded. 7. NUNN was previously grafted to the ramus intermedius is atretic and nonfunctional. 8. Vein graft to the LAD is patent. Attempted PTCA stent of the left circumflex. We attempted to wire the left circumflex, but we could not secondary to the lesion of the left main extending beyond the circumflex. No intervention was undertaken as most likely intervening on just to the left main were close to circumflex. OVERALL IMPRESSION: Patency of the vein graft to the left anterior descending, patency of the [place] circumflex with a very extensive left main stenosis that extends beyond the ostium of the circumflex and unable to wire the circumflex. Hence medical management of the coronary artery disease and cardiac risk factors. TRANSINT:[id number] Voice Confirmation ID: [id number] DOCUMENT ID: [id number] OPERATIVE REPORT [id number] BLANCHELEEANN PABONASHLEIGH MANLEY MD CC: [id number] DICTATION DATE: 01/06/20 1318 FARM TECHNICIAN: 01/06/20 2143 DEP CLI 01/06/20 [facility] [address] [place] [address]
--- NOTE | ~2020-01-06 | HEMODYNAMI ---
PATIENT:COREY CAMACHO MEDICAL RECORD: [id number] : 46 LOCATION:[facility] ADMISSION DATE: 01/06/20 Generatedon:01/06/202013:23 Patient name: COREY CAMACHO Patient #: [id number] SSN: : 1950 Date of study: 01/06/2020 Page: Of Hemodynamic Procedure Report Patient Data Patient Demographics Procedure consent was obtained First Name: COREY Gender: Female Last Name: DOUG : 1950 [facility] Initial: JACKIE Age: 69 year(s) Patient #: [id number] Race: Unknown Additional ID: [id number] Contact details Address: [address] [place] [address] State: [place] City: [place] Zip code: [address] Past Medical History Allergies: No known allergies Admission Admission Data Admission Date: 01/06/2020 Admission Time: 7:23 Arrival Date: 01/06/2020 Arrival Time: 0:00 Admit Source: Other Insurance Payor: Medicare [facility] #: [id number] Height (in.): 61 BSA: 1.61 (m2) Height (cm.): 154.94 BMI: 25.94 (kg/m2) Weight (lbs.): 137.28 Weight (kg.): 62.27 Lab Results Lab Result Date: 01/06/2020 Lab Result Time: 0:00 Biochemistry Name Units Result Min Max BUN mg/dl 21 --(----)-* 7 18 Creatinine mg/dl 1.4 --(----)*- 0.6 1.3 eGFR ml/min 39 *-(----)-- 90 120 NONAFRICAN CBC Name Units Result Min Max Hematocrit % 37.6 *-(----)-- 42 54 Hemoglobin g/dl 12.2 *-(----)-- 13.5 17.5 Procedure Procedure Types Cath Procedure Diagnostic Procedure LHC C w/Coronaries w/Grafts Sedation Charges Moderate Sedation up to 15 minutes Procedure Description Procedure Date Procedure Date: 01/06/2020 Procedure Start Time: 12:56 Procedure End Time: 13:16 Procedure Staff Name Function Edy Jackson MD Performing Physician Darrick Paige RT Scrub Reggie Gómez RN Nurse Emerita Hill RT Monitor Procedure Data Cath Procedure Fluoroscopy Diagnostic fluoroscopy Total fluoroscopy Time: 7 time: 7 min min Diagnostic fluoroscopy Total fluoroscopy dose: 404 dose: 404 mGy mGy Contrast Material Contrast Material Type Amount (ml) Isovue 370 60 Entry Location Entry Primary Successful Side Size Upsize Upsize Entry Closure Succes sful Closure Location (Fr) 1 (Fr) 2 (Fr) Remarks Device Remarks Femoral Right 5 Fr 6 Fr Exoseal artery Short Estimated blood loss: 5 ml Diagnostic catheters Device Type Used For End Catheter Placement MULTIPACK Pigtail 5 Fr Procedure catheter MULTIPACK JL 4.0 5Fr Procedure catheter MULTIPACK 3DRC 5Fr Procedure catheter DIAGNOSTIC AR MOD 5Fr Procedure Catheter (005023K) Procedure Complications No complications Procedure Medications Medication Administration Route Dosage 0.9% NaCl I.V. 100 ml/hr Oxygen etCO2 Nasal cannula 2 l/min Heparin Flush Bag added to field 2 bags (1000units/500ml NS) Lidocaine 2% added to field 20 Versed I.V. 2 mg Fentanyl I.V. 100 mcg Versed I.V. 1 mg Heparin Bolus I.V. 4000 units Hemodynamics Rest BSA: 1.61 (m2) HGB: 12.2 (g/dl) O2 Consumption: Estimated: 152.9 (ml/min) O2 Con sumption indexed: Estimated:94.97 (ml/min/m) Heart Rate: 79 (bpm) Snapshots Pre Cath Intra NCS Post Cath Vital Signs Time Heart Resp SPO2 etCO2 NIBP (mmHg) Rhythm Pain Sedation Rate (ipm) (%) (mmHg) Status Level (bpm) 12:13:15 76 17 96 0 131/67(106) NSR 0 (11) 10(A) , No pain 12:17:27 78 19 99 33.8 118/65(94) NSR 0 (11) 10(A) , No pain 12:21:35 79 11 99 42.8 121/64(92) NSR 0 (11) 10(A) , No pain 12:25:46 81 12 98 42.8 106/55(78) NSR 0 (11) 10(A) , No pain 12:29:50 79 11 98 39.8 111/61(82) NSR 0 (11) 10(A) , No pain 12:33:58 87 11 97 19.5 113/54(88) NSR 0 (11) 10(A) , No pain 12:38:08 78 18 97 39 115/49(95) NSR 0 (11) 10(A) , No pain 12:42:16 80 14 97 39 110/59(88) NSR 0 (11) 10(A) , No pain 12:46:23 78 10 98 42.1 88/56(72) NSR 0 (11) 10(A) , No pain 12:50:25 92 10 97 43.6 101/51(77) NSR 0 (11) 10(A) , No pain 12:54:31 97 10 98 43.5 102/50(72) NSR 0 (11) 10(A) , No pain 12:58:39 78 9 97 14.2 86/47(71) NSR 0 (11) 9(A) , No pain 13:02:36 78 11 98 36.8 103/56(86) NSR 0 (11) 9(A) , No pain 13:06:42 78 10 98 38.3 110/55(86) NSR 0 (11) 9(A) , No pain 13:10:52 80 11 98 42 93/50(67) NSR 0 (11) 10(A) , No pain 13:14:52 77 15 98 43.6 110/59(90) NSR 0 (11) 10(A) , No pain Medications Time Medication Route Dose Verified Delivered Reason Notes Effectiveness by by 12:15:40 0.9% NaCl I.V. 100 Reggie Reggie Per physician ml/hr Dalia Gómez RN RN 12:15:49 Oxygen etCO2 2 Reggie Reggie for low 02 sats Nasal l/min Dalia Gómez cannula RN RN 12:16:00 Heparin Flush added 2 Reggie Reggie used for Bag to bags Dalia Gómez procedure (1000units/500ml field HAYNES RN NS) 12:16:10 Lidocaine 2% added 20ml Reggie Reggie for local to vial Dalia Gómez anesthetic field HAYNES RN 12:54:25 Versed I.V. 2 mg Reggie Reggie for sedation Dalia Gómez RN RN 12:54:32 Fentanyl I.V. 100 Reggie Reggie for sedation mcg Dalia Gómez RN RN 12:55:48 Versed I.V. 1 mg Reggie Reggie for sedation Dalia Gómez RN RN 13:06:53 Heparin Bolus I.V. 4000 Reggie Reggie for units Dalia Gómez anticoagulation RN entry level financial analyst Log Time Note 12:00:26 Reggie Gómez RN sent for patient. Start room use. 12:05:23 Procedure Status Elective Heart Cath (OP). 12:05:57 Admit Source: Other 12:06:30 Time tracking: Regular hours (M-F 7:00 - 5:00) 12:06:35 Plan of Care:Hemodynamics will remain stable., Cardiac rhythm will remain stable., Comfort level will be maintained., Respiratory function will remain adequate., Patient/ family verbilizes understanding of procedure., Procedure tolerated without complication., Recovers from procedure without complications.. 12:06:54 Patient received from Pre/Post Procedure Room to CCL 2 Alert and oriented. Tansferred to table in Supine position. 12:07:01 Signed procedure consent form obtained from patient. 12:07:03 Warm blankets applied, and brie hugger turned on for patient comfort. 12:07:15 ECG and BP/O2 sat monitors applied to patient. 12:07:15 Correct patient and procedure confirmed by team. 12:07:30 H&P Date Dictated: 01/05/2020 Within 30 days and on chart.. 12:07:31 Pre-op teaching completed and patient verbalized understanding. 12:07:31 Pre-procedure instructions explained to patient. 12:07:33 Family unavailable. 12:07:34 Patient NPO since Midnight. 12:07:41 Patient allergic to No known allergies 12:07:43 Is the patient allergic to Iodine/contrast media? No. 12:07:45 Was the patient premedicated? N/A 12:08:45 Patient diabetic? No. 12:08:49 Is patient on blood thinner?Yes 12:08:52 ACC The patient was administered the following blood thiners within the last 24 hours: ACCPlavix 12:08:56 Patient not . Patient is over age 55. 12:08:57 ----Pre-sedation anethsthesia assessment.---- 12:09:00 Previous problem with sedation/anesthesia? No ? 12:09:01 Snore? Yes 12:09:02 Sleep apnea? Unknown 12:09:04 Deviated septum? No 12:09:05 Opens mouth fully? Yes 12:09:06 Sticks out tongue? Yes 12:09:07 Airway obstruction? No ? 12:09:10 Dentures? No ? 12:09:13 Sharps counted by scrub and verified by R.N. 12:09:13 Alarms reviewed by R. N. 12:11:36 Lab results completed and on chart. 12:11:39 Stress Test: no; N/A ? 12:11:44 Diagnostic Cath Status : Elective 12:12:45 Arrival Date: 01/06/2020 12:00:00 AM 12:12:47 Insurance Payor : Medicare 12:13:10 Patient Height : 61 inches 12:13:15 Patient Weight : 137.28 lbs 12:13:34 Patient pain scale 0/10 ?. 12:15:40 0.9% NaCl 100 ml/hr I.V. was administered by Reggie Gómez RN; Per physician; Verbal order read back and verified. 12:15:49 Oxygen 2 l/min etCO2 Nasal cannula was administered by Reggie Gómez RN; for low 02 sats; Verbal order read back and verified. 12:16:00 Heparin Flush Bag (1000units/500ml NS) 2 bags added to field was administered by Reggie Gómez RN; used for procedure; Verbal order read back and verified. 12:16:10 Lidocaine 2% 20ml vial added to field was administered by Reggie Gómez RN; for local anesthetic; Verbal order read back and verified. 12:20:34 Pre procedure: right dorsailis pedis pulse 1+ Palpable, but thready & weak; easily obliterated 12:20:40 IV patent on arrival in left antecubital with 0.9% NaCl at [facility]. 12:23:49 Lab Result : Hemoglobin 12.2 g/dl 12:23:49 Lab Result : Hematocrit 37.6 % 12::49 Lab Result : eGFR NONAFRICAN 39 ml/min 12::49 Lab Result : BUN 21 mg/dl 12:23:49 Lab Result : Creatinine 1.4 mg/dl 12:32:45 Right groin area was prepped with chlora-prep and draped in sterile fashion 12:32:54 Full Disclosure recording started 12:32:57 Baseline sample Acquired. 12:33:04 Rhythm: sinus rhythm 12:33:11 Use device set Femoral Dx 12:33:12 Bag Decanter (2002S) opened to sterile field. 12:33:12 ACIST Syringe (28245) opened to sterile field. 12:33:13 Medline Cath Pack ([id number]) opened to sterile field. 12:33:14 ACIST Manifold (57433) opened to sterile field. 12:33:14 ACIST Hand Control (47060) opened to sterile field. 12:33:15 DIAGNOSTIC Multipack 5Fr catheter set (RU9244) opened to sterile field. 12:33:16 SHEATH 5FR Bonduel (PGY636) opened to sterile field. 12:33:17 EMERALD Guide Wire (229-084) opened to sterile field. 12:35:11 Zero performed for pressure channel P1 12:50:17 Final Timeout: patient, procedure, and site verified with staff and physician. All members of the team are in agreement. 12:50:17 --------ALL STOP TIME OUT------ 12:50:20 Right groin site verified by team. 12:50:24 Fire Safety Assessment: A--An alcohol-based skin anteseptic being used preoperatively., C--Open oxygen or nitrous oxide is being used., D--An ESU, laser, or fiber-optic light is being used. 12:50:28 Physical assessment completed. ASA score P 2 - A patient with mild systemic disease as per Edy Jackson MD. 12:50:30 3b) 30-44 Moderately reduced kidney function. 12:50:34 Maximum allowable contrast dose (3.7 X eGFR X 0.75)108 ml. 12:50:38 Sedation plan: IV Moderate Sedation Medication:Versed, Fentanyl 12:54:25 Versed 2 mg I.V. was administered by Reggie Gómez RN; for sedation; Verbal order read back and verified. 12:54:32 Fentanyl 100 mcg I.V. was administered by Reggie Lorigan RN; for sedation; Verbal order read back and verified. 12:55:37 Procedure started. 12:55:48 Versed 1 mg I.V. was administered by Reggie Gómez RN; for sedation; Verbal order read back and verified. 12:56:34 Local anesthetic to right femoral artery with Lidocaine 2% by Edy Jackson MD.INITIAL ACCESS ONLY 12:57:02 A 5 Fr sheath was inserted into the Right Femoral artery 12:57:30 A MULTIPACK Pigtail 5 Fr catheter was advanced over the wire and used for Procedure. 12:57:44 LV gram done using BLANKENSHIP 12:57:48 Injector settings: Ml/sec: 10, Volume: 20, 12:57:58 EF : 40 % 12:58:02 Catheter removed. 12:58:14 A MULTIPACK JL 4.0 5Fr catheter was advanced over the wire and used for Procedure. 12:58:27 LCA angiography performed. 12:59:32 Catheter removed. 12:59:55 A MULTIPACK 3DRC 5Fr catheter was advanced over the wire and used for Procedure. 13:00:06 NUNN to Ramus angiography performed. 13:00:32 RCA angiography performed. 13:00:36 Catheter removed. 13:01:02 ACCDominant side:Left 13:01:06 A DIAGNOSTIC AR MOD 5Fr Catheter ([id number]) was advanced over the wire and used for Procedure. 13:01:43 SVG to RCA angiography performed. 13:01:46 SVG to LAD angiography performed. 13:01:48 Catheter removed. 13:01:55 Proceeding to intervention. 13:02:00 Use device set [facility] PCI 13:02:17 Sheath upsized to a 6 Fr Short. 13:02:59 Pre PCI Site: [place] LMCA has 99% stenosis. 13:03:09 Pre PCI Site: [place] Circ has 95% stenosis. 13:03:36 SHEATH 6FR Bonduel (EAB898) opened to sterile field. 13:03:43 INFLATOR Merit BasixCompak (IE9517) opened to sterile field. 13:04:13 SuperCross Microcatheter 90 angle (5304) opened to sterile field. 13:04:50 GUIDE 6FR EBU 4.5 catheter ([id number]) opened to sterile field. 13:04:58 6 Fr ebu 4.5 guide catheter was inserted over the wire 13:05:09 CHOICE PT Extra Support J 300cm guide wire ([id number]) opened to sterile field. 13:06:28 CHOICE ES 300 wire advanced. 13:06:53 Heparin Bolus 4000 units I.V. was administered by Reggie Gómez RN; for anticoagulation; Verbal order read back and verified. 13:09:59 Wire removed. 13:10:21 FIELDER XT J 300cm guide wire ([id number]) opened to sterile field. 13:10:29 FIELDER XT 300 wire advanced. 13:12:26 Wire removed. 13:13:11 UANBLE TO CROSS LESION TO FIX WIRE AND GUIDE REMOVED.. 13:13:38 EXOSEAL 6Fr (EX600) opened to sterile field. 13:13:53 Sheath removed intact; hemostasis achieved with Exoseal to the Right Femoral artery. 13:14:16 Procedure ended.(Physican Out) 13:14:44 Fluoroscopy time 07.00 minutes. 13:14:48 Fluoroscopy dose: 404 mGy 13:15:00 Flurop Dose total: 404 13:15:10 Dose Area Product 98586 mGy/cm. 13:15:17 Contrast amount:Isovue 370 60ml. 13:15:21 Maximum allowable dose exceeded? No. 13:15:22 Sharps counted by scrub and verified by R.N. 13:15:27 Post-op/insertion site Right Femoral artery dressed using a 4 x 4 and Tegaderm. 13:15:32 Post right femoral artery:stable, soft, clean and dry 13:15:34 Post Procedure Pulses reassessed and unchanged 13:15:38 Post procedure: right dorsailis pedis pulse 1+ Palpable, but thready & weak; easily obliterated. 13:15:40 Post-procedure physical assessment completed. ASA score P 2 - A patient with mild systemic disease as per Edy Jackson MD. 13:15:44 Post procedure rhythm: unchanged. 13:15:48 Estimated blood loss: 5 ml 13:15:49 Post procedure instruction explained to patient.Patient verbalizes understanding. 13:15:51 Patient needs reinforcement of post procedure teaching. 13:16:03 Procedure type changed to Cath procedure, Diagnostic procedure, LHC, LHC w/Coronaries w/Grafts, Sedation Charges, Moderate Sedation up to 15 minutes 13:16:26 Procedure and supply charges have been captured, reviewed, submitted and are correct. 13:16:30 Procedure Complication : No complications 13:16:33 Vital chart was stopped 13:16:36 [place] Findings: MVD- MD will discuss options w/ pt 13:16:41 See physician's report for complete and final results. 13:16:41 Operative report dictated upon procedure completion. 13:16:43 Report given to Pre/Post Procedure Room. 13:16:47 Patient transfered to Pre/Post Procedure Room with Stretcher. 13:16:49 Full Disclosure recording stopped 13:16:49 Procedure ended. 13:16:55 End room use (Document Last) 13:17:09 End room use (Document Last) 13:17:30 End room use (Document Last) 13:18:31 ACT drawn and resulted at 279 seconds. (normal therapeutic range 180-240 seconds). 13:23:06 Femstop placed over the right femoral artery at 90 mmHg. Hemostasis achieved. Device Usage Item Name Manufacture Quantity Catalog Number Hospital Part Current Min imal Lot# / Charge Number Stock Stock Serial# Code ACIST Syringe Acist 1 56400 492712 990159 221865 20 (17428) Medical Systems Inc Bag Decanter Microtek 1 2002S 402268 43942 945204 5 (2001S) Medical Inc. Medline Cath Medline 1 [id number] 604295 23961 599403 5 Pack ([id number]) ACIST Hand Acist 1 62662 428866 888198 222944 5 Control Medical (37133) Systems Inc ACIST Acist 1 06377 839453 808563 833717 5 Manifold Medical (46192) Systems Inc DIAGNOSTIC Cardinal 1 RO8857 772336 07934 015743 30 Multipack 5Fr Health catheter set (LW5045) SHEATH 5FR Terumo 1 KNZ299 568723 664838 466329 5 Bonduel (CPU778) EMERALD Guide Cardinal 1 502-455 740434 205316 771348 5 Wire Health (502-455) MULTIPACK Cardinal 1 227367 5 Pigtail 5 Fr Health catheter MULTIPACK JL Cardinal 1 252402 5 4.0 5Fr Health catheter MULTIPACK Cardinal 1 208573 5 3DRC 5Fr Health catheter DIAGNOSTIC AR Cardinal 1 [id number] 499886 426813 168566 15 MOD 5Fr Health Catheter (332572O) SHEATH 6FR Terumo 1 PRF636 246486 704051 604274 40 Bonduel (OVY219) INFLATOR Merit 1 WY1401 261049 124372 895321 15 Merit Medical BasixCompak (CS2048) SuperCross Vascular 1 5304 821994 836974 191738 5 Microcatheter Solutions 90 angle (5304) GUIDE 6FR EBU Medtronic 1 [id number] 052894 34845 269279 0 4.5 catheter (EQ4CCD35) CHOICE PT [place] 1 [id number] 118741 240664 428906 5 Extra Support Scientific J 300cm guide wire ([id number]) FIELDKELLI J [facility] Intecc 1 [id number] 417539 816954 115308 5 300cm guide wire ([id number]) EXOSEAL 6Fr Cardinal 1 EX600 001086 782251 523434 10 (EX600) Health Signature Audit [place] Stage Time Signature Unsigned Intra-Procedure 01/06/2020 Emerita Hill 1:17:09 PM RT(R) Intra-Procedure 01/06/2020 Reggie 1:17:30 PM Dalia HAYNES Intra-Procedure 01/06/2020 Edy Jackson MD 1:19:17 PM 01/06/2020 1:22:45 PM Intra-Procedure 01/06/2020 Edy Jackson 1:23:21 PM Intra-Procedure 01/06/2020 Edy Jackson 1:23:38 PM Signatures Performing Physician : Signature : Edy Jackson MD Date : Time : Nurse : Reggie Gómez Signature : RN Date : Time : Monitor : Emerita Hill Signature : RT Date : Time : [address] [place] [address]
[~2020-01-06 07:23] MED LIST changes: +PROZAC40 MG PO; +SYNTHROID175 MCG PO
[2020-01-06 10:38] VITALS: BP 127/55; Ht 154.9 cm; Wt 62.3 kg
[2020-01-06] MEDS ORDERED: SYNTHROID200 MC1 PO (10:42)
[2020-01-06 11:00] LABS: BASOPHILS 0.5 % (0-2); EOSINOPHILS 5.3 % (0-7); HEMATOCRIT 37.6 % (36.0-48.0); HEMOGLOBIN 12.2 g/dL (12-16); LYMPHOCYTES 34.6 % (15-50); MCH 29.5 pg (26.0-34.0); MCHC 32.4 g/dL (31.0-37.0); MEAN PLATELET VOLUME 8.7 fL (7.4-10.4); MONOCYTES 12.8 % (2-11); NEUTROPHILS 46.8 % (40-80); PLATELET COUNT 222 10x3/uL (130-400); RBC 4.13 10x6/uL (4.00-5.40); RDW 13.8 % (11.5-14.5); WBC 4.3 10x3/uL (4.8-10.8)
[2020-01-06 11:16] LABS: LDL-HDL RATIO 0.8 ratio (1.5-3.5)
[2020-01-06 12:22] LABS: ANION GAP 12.5 mmol/L (8-16); CALCIUM 9.7 mg/dL (8.5-10.1); CARBON DIOXIDE 26.3 mmol/L (21.0-32.0); CREATININE - SERUM 1.4 mg/dL (0.6-1.3); POTASSIUM - SERUM 4.8 mmol/L (3.5-5.1)
--- NOTE | 2020-01-06 13:32 | NUR ---
PT ARRIVED BY STRETCHER. PLACED ON MONITORS. ASSESSMENT COMPLETED. VSS. CALL LIGHT WITHIN REACH.
--- NOTE | 2020-01-06 13:46 | NUR ---
RIGHT GROIN DRESSING C/D/I. NO S/S OF HEMATOMA NOTED. CALL LIGHT WITHIN REACH. VSS AT THIS TIME. NO NEEDS. RESTING COMFORTABLY.
[2020-01-06] MEDS ORDERED: ISOSORBIDE MONO30 M1 PO (13:59)
--- NOTE | 2020-01-06 14:17 | NUR ---
RIGHT GROIN DRESSING C/D/I. NO S/S OF HEMATOMA NOTED. CALL LIGHT WITHIN REACH. VSS. NO NEEDS AT THIS TIME. DENIES NAUSEA/PAIN.
--- NOTE | 2020-01-06 14:45 | NUR ---
RIGHT GROIN DRESSING C/D/I. NO S/S OF HEMATOMA NOTED. WEANING FEMSTOP AT THIS TIME. CURRENTLY AT 50mmHg. NO DISTRESS NOTED. VSS.
--- NOTE | 2020-01-06 15:15 | NUR ---
FEMSTOP WEANED TO 25mmHg. NO BLEEDING/HEMATOMA NOTED.
--- NOTE | 2020-01-06 15:45 | NUR ---
FEMSTOP OFF. NO HEMATOMA NOTED. SMALL AMOUNT OF BLOOD OOZING FROM SITE. DRESSING APPLIED AND PRESSURE HELD FOR 5 MINUTES. NO NEW BLEEDING NOTED. WILL CONTINUE TO MONITOR.
--- NOTE | 2020-01-06 16:15 | NUR ---
RIGHT GROIN DRESSING C/D/I. NO S/S OF HEMATOMA NOTED. CALL LIGHT WITHIN REACH. PT'S HEAD OF BED INC TO 3O DEGREES. TOLERATED WELL. SET UP WITH SANDWICH TRAY AND DRINK.
--- NOTE | 2020-01-06 17:00 | NUR ---
RIGHT GROIN DRESSING C/D/I. NO S/S OF HEMATOMA NOTED. DISCUSSED DISCHARGE INSTRUCTIONS WITH PT. SHE VOICED UNDERSTANDING. PT'S WINE CELLAR WORKER CALLED AND UPDATED ON PT'S STATUS. PIV D/C'D WITH CATH TIP INTACT. TOLERATED WELL. PT INSTRUCTED TO GET UP AND DRESSED AT THIS TIME.
--- NOTE | 2020-01-06 17:15 | NUR ---
PT AMBUALTED TO RESTROOM. VOIDED WITHOUT DIFFICULTY. STEADY GAIT NOTED.
--- NOTE | 2020-01-06 17:25 | NUR ---
PT TAKEN DOWN TO VEHICLE BY WHEELCHAIR. NO S/S OF DISTRESS NOTED. ALL BELONGINGS AND PAPERWORK IN HAND.
== END 2020-01-06 17:25 | disposition home or self-care (01) ==
LOC: D.CATH 07:23
PROVIDERS: ATTEND Internal Medicine Interventional Cardiology
DX: I25.119 Atherosclerotic heart disease of native coronary artery with unspecified angina pectoris (principal); I10 Essential (primary) hypertension; R06.09 Other forms of dyspnea